=== PATIENT | female | born 1950 | race Caucasian/White ===

== ENCOUNTER 2023-12-13 11:34 | Emergency (ER) | payer OTHER, SELFPAY ==
[2023-12-13 11:58] VITALS: BP 130/82
--- NOTE | 2023-12-13 14:39 | ED.GENMED ---
History of Present Illness
<Chente Telles Jr., PA-C - Last Filed: 12/14/23 23:24>
General
Chief Complaint: Skin Surface Trauma
Source: patient and spouse
Exam Limitations: none
Time Seen by Provider: 12/13/23 13:56
Nursing documentation reviewed up to this point in time: agreed with
Travel History
Have you had any contact with someone who has COVID-19?: No
Do you have any symptoms of coronavirus? Fever > 100 degrees, chills, cough, shortness of breath, sore throat, loss of taste or smell, muscle aches, or headache?: No
History of Present Illness
History of Present Illness:
73-year-old female with past medical history of hypertension hyperlipidemia, anxiety depression currently on Plavix presenting to the emergency department today after a trip and fall in her home hitting her chin did not lose consciousness no nausea
vomiting has some mild pain to her chin also discomfort to her right shoulder and right posterior lower back. Also has a laceration to her left lower extremity. Has been able to ambulate since. Denies any numbness or weakness.
Past History
<Chente Telles Jr., PA-C - Last Filed: 12/14/23 23:24>
Past History
ED Past Medical History: CVA, GERD, HTN, Hypercholesterolemia, NIDDM and Other (Peripheral vascular disease, peptic ulcer disease, Renal CA with right nephrectomy 2006)
ED Past Surgical History: Gynecological and Other
Social History
Tobacco: Non-smoker
Alcohol: None
Drug: None
Personal:
Living: with family
Review of Systems
<YASH Tapia Jr. Last Filed: 12/14/23 23:24>
Review of Systems
Allergies reviewed?: Yes
All Other Systems: ROS reviewed and negative except as documented in HPI and ROS
Phy Exam
<Chente Telles Jr., PA-C - Last Filed: 12/14/23 23:24>
Physical Exam
Physical Exam:
GENERAL: Alert , in no apparent distress
EYE: pupils equal and reactive
NECK: Supple, no significant adenopathy.
ENT: Laceration just below the chin on the right side 3 cm in length subcutaneous in depth. o/p clr, mmm.
CARDIAC: Regular rate and rhythm .
LUNGS: Clear breath sounds bilaterally, no acute respiratory distress, no wheezes/rales/rhonchi
ABDOMEN: Soft, without focal tenderness, no r/g, no cvat
NEUROLOGICAL: Alert and oriented, no focal neuro deficits
SKIN: Laceration deep to the subcutaneous tissue on the left anterior lower early. Roughly 5 cm in total length subcutaneous in depth no foreign body seen clean and General appearance. Warm and dry, skin intact.
MUSCULOSKELETAL: Discomfort to the right shoulder. Also discomfort of the right low back. No edema, well perfused.
PSYCH: Normal and appropriate interaction.
Course
<Chente Telles Jr., PA-C - Last Filed: 12/14/23 23:24>
Orders/Labs/Results
Orders:
Orders
12/13/23 14:08
CT Cervical Spine W/o Iv Contr Urgent
Comment:
Reason For Exam: fall neck pain
CT Head W/o Iv Contrast Urgent
Comment:
Reason For Exam: fall hit head
CT Lumbar Spine W/o Iv Contras Urgent
Comment:
Reason For Exam: fall lbp
Cephalexin Monohydrate [Keflex] 500 mg PO NOW STA
Tetanus/Diphth/Acelpertussis [Adacel] 0.5 ml IM .ONCE ONE
CR Leg Tibia/fibula Left 2 Vw Urgent
Comment:
Reason For Exam: fallleg pain
CR Shoulder, Trauma - Right Urgent
Comment:
Reason For Exam: fall right shoulder pain
12/13/23 15:57
CT Angio Lower Ext W/Wo Iv Contrast [CT Lower Ext Angio W/wo Iv Con] Urgent
Comment:
Reason For Exam: left leg at the ankle. mid early and distal
12/13/23 16:03
HYDROmorphone [Dilaudid] 0.5 mg IV NOW STA
12/13/23 16:11
BMP [Basic Metabolic Panel] Urgent
Complete Blood Count/With Diff Urgent
12/13/23 17:13
Cephalexin Monohydrate [Keflex] 500 mg .ROUTE .STK-MED ONE
Tetanus/Diphth/Acelpertussis [Adacel] 0.5 ml .ROUTE .STK-MED ONE
Abnormal Lab Results
12/13/23
16:11
RBC 3.93 L 10^6/uL
(4.20-5.40)
Hgb 11.2 L g/dL
(12.0-16.0)
Hct 33.6 L %
(37.0-47.0)
Absolute Neuts (auto) 6.9 H 10^3/uL
(1.4-6.5)
Glucose 143 H mg/dl
(70-99)
12/13/23 16:11
12/13/23 16:11
Vital Signs
Initial and Last Documented VS:
Initial Vital Signs
Temp Pulse Resp BP Pulse Ox
98 F 66 16 130/82 98
12/13/23 11:58 12/13/23 11:58 12/13/23 11:58 12/13/23 11:58 12/13/23 11:58
Last Documented Vital Signs
Temp Pulse Resp BP Pulse Ox
98 F 66 16 130/82 98
12/13/23 11:58 12/13/23 11:58 12/13/23 11:58 12/13/23 11:58 12/13/23 11:58
<Ben Kendall DO - Last Filed: 12/13/23 16:04>
Orders/Labs/Results
Orders:
Orders
12/13/23 14:08
CT Cervical Spine W/o Iv Contr Urgent
Comment:
Reason For Exam: fall neck pain
CT Head W/o Iv Contrast Urgent
Comment:
Reason For Exam: fall hit head
CT Lumbar Spine W/o Iv Contras Urgent
Comment:
Reason For Exam: fall lbp
Cephalexin Monohydrate [Keflex] 500 mg PO NOW STA
Tetanus/Diphth/Acelpertussis [Adacel] 0.5 ml IM .ONCE ONE
CR Leg Tibia/fibula Left 2 Vw Urgent
Comment:
Reason For Exam: fallleg pain
CR Shoulder, Trauma - Right Urgent
Comment:
Reason For Exam: fall right shoulder pain
12/13/23 15:57
CT Angio Lower Ext W/Wo Iv Contrast [CT Lower Ext Angio W/wo Iv Con] Urgent
Comment:
Reason For Exam: left leg at the ankle. mid early and distal
12/13/23 16:03
HYDROmorphone [Dilaudid] 0.5 mg IV NOW STA
12/13/23 16:11
BMP [Basic Metabolic Panel] Urgent
Complete Blood Count/With Diff Urgent
12/13/23 17:13
Cephalexin Monohydrate [Keflex] 500 mg .ROUTE .STK-MED ONE
Tetanus/Diphth/Acelpertussis [Adacel] 0.5 ml .ROUTE .STK-MED ONE
Abnormal Lab Results
12/13/23
16:11
RBC 3.93 L 10^6/uL
(4.20-5.40)
Hgb 11.2 L g/dL
(12.0-16.0)
Hct 33.6 L %
(37.0-47.0)
Absolute Neuts (auto) 6.9 H 10^3/uL
(1.4-6.5)
Glucose 143 H mg/dl
(70-99)
12/13/23 16:11
12/13/23 16:11
Vital Signs
Initial and Last Documented VS:
Initial Vital Signs
Temp Pulse Resp BP Pulse Ox
98 F 66 16 130/82 98
12/13/23 11:58 12/13/23 11:58 12/13/23 11:58 12/13/23 11:58 12/13/23 11:58
Last Documented Vital Signs
Temp Pulse Resp BP Pulse Ox
98 F 66 16 130/82 98
12/13/23 11:58 12/13/23 11:58 12/13/23 11:58 12/13/23 11:58 12/13/23 11:58
<Jared Rodrigues PA-C - Last Filed: 12/13/23 19:05>
Orders/Labs/Results
Orders:
Orders
12/13/23 14:08
CT Cervical Spine W/o Iv Contr Urgent
Comment:
Reason For Exam: fall neck pain
CT Head W/o Iv Contrast Urgent
Comment:
Reason For Exam: fall hit head
CT Lumbar Spine W/o Iv Contras Urgent
Comment:
Reason For Exam: fall lbp
Cephalexin Monohydrate [Keflex] 500 mg PO NOW STA
Tetanus/Diphth/Acelpertussis [Adacel] 0.5 ml IM .ONCE ONE
CR Leg Tibia/fibula Left 2 Vw Urgent
Comment:
Reason For Exam: fallleg pain
CR Shoulder, Trauma - Right Urgent
Comment:
Reason For Exam: fall right shoulder pain
12/13/23 15:57
CT Angio Lower Ext W/Wo Iv Contrast [CT Lower Ext Angio W/wo Iv Con] Urgent
Comment:
Reason For Exam: left leg at the ankle. mid early and distal
12/13/23 16:03
HYDROmorphone [Dilaudid] 0.5 mg IV NOW STA
12/13/23 16:11
BMP [Basic Metabolic Panel] Urgent
Complete Blood Count/With Diff Urgent
12/13/23 17:13
Cephalexin Monohydrate [Keflex] 500 mg .ROUTE .STK-MED ONE
Tetanus/Diphth/Acelpertussis [Adacel] 0.5 ml .ROUTE .STK-MED ONE
Abnormal Lab Results
12/13/23
16:11
RBC 3.93 L 10^6/uL
(4.20-5.40)
Hgb 11.2 L g/dL
(12.0-16.0)
Hct 33.6 L %
(37.0-47.0)
Absolute Neuts (auto) 6.9 H 10^3/uL
(1.4-6.5)
Glucose 143 H mg/dl
(70-99)
12/13/23 16:11
12/13/23 16:11
Vital Signs
Initial and Last Documented VS:
Initial Vital Signs
Temp Pulse Resp BP Pulse Ox
98 F 66 16 130/82 98
12/13/23 11:58 12/13/23 11:58 12/13/23 11:58 12/13/23 11:58 12/13/23 11:58
Last Documented Vital Signs
Temp Pulse Resp BP Pulse Ox
98 F 66 16 130/82 98
12/13/23 11:58 12/13/23 11:58 12/13/23 11:58 12/13/23 11:58 12/13/23 11:58
Procedures
<Chente Telles Jr., PA-C - Last Filed: 12/14/23 23:24>
Laceration Closure
Chin:
Status of Wound: clean
Size of Wound in cm: 4
Description of Wound Edges: sharp
Preparation: cleaned with saline
Anesthesia: 1% Lidocaine with epi
Revision/Debridement: routine- no revision and irrigate-direct pressure
Wound exploration: explored to base- no FB and no tendon involvement
Type of Closure: interrupted sutures
Skin Closure Material: 5-0 nylon
Number of sutures: 6
Left Anterior Ankle:
Status of Wound: clean
Size of Wound in cm: 7
Description of Wound Edges: sharp
Preparation: cleaned with saline
Anesthesia: 1% Lidocaine with epi
Revision/Debridement: minor revision and irrigate-direct pressure
Wound exploration: explored to base- no FB and no tendon involvement
Type of Closure: single layer closure and other (Significant bleeding from the laceration site requiring 3 [id number] stitches to control bleeding through the center of the wound then closed with additional simple interrupted sutures as
well with 4-0 nylon)
Skin Closure Material: 4-0 nylon
Number of sutures: 11
<Chente Telles Jr., PETROS-Kasey - Last Filed: 12/14/23 23:24>
MDM/Problems Addressed
MDM/Problems Addressed:
73-year-old female presenting to the emergency department today with concerns of multiple injuries after ground-level trip and fall in her closet. Hit her chin hit her left early also has some right shoulder pain and right low back pain. On arrival
here vital signs are normal. Patient no obvious distress. Does have a laceration to the left anterior early that required repair as well as laceration below the chin that required repair. She did get a CT scan of the head and neck as well as of
the low back additionally an x-ray of the right shoulder.
No emergent findings on imaging. Patient laceration to the chin closed with 6 nonabsorbable sutures and will follow-up for removal in the future. Tolerated well no foreign body seen clean in appearance was started on Keflex due to multiple wounds
and also given updated tetanus shot. Patient had the left ankle cleaned and repaired initial significant bleeding from the wound requiring multiple [id number] sutures to control the bleeding. There was concern of potential arterial bleed Case
was discussed with vascular surgery and CT angiogram obtained without emergent findings otherwise stable for outpatient manage.
<Jared Rodrigues PA-C - Last Filed: 12/13/23 19:05>
*Critical Care Note
Total Time (30-74mins, 75-104mins- exclusive of procedures): Not Applicable
<Jared Rodrigues PA-C - Last Filed: 12/13/23 19:05>
Update Note
Update Note:
Assumed care of patient pending CT angiogram of the lower extremity secondary to potential arterial bleed for the laceration. Patient was seen and examined by vascular surgery. CT angiogram was negative for acute arterial bleed. The wound was
reinspected we irrigated and reanesthetized with 1% lidocaine with epinephrine. Wound closure was completed with 4-0 Prolene sutures in a simple erupted fashion. Including the sutures from prior provider there was a total of 11 sutures in the leg.
Dressing was applied she was sent home with antibiotics and something for pain. Wound care instructions and return precautions.
ED Attending Note
<Chente Telles Jr., PA-C - Last Filed: 12/14/23 23:24>
-
Portions of this chart may have been created with voice recognition software.� Occasional wrong word or��sound alike� substitutions may have occurred due to the inherent limitations of voice recognition software.
<Ben Kendall DO - Last Filed: 12/13/23 16:04>
ED Attending Note
Patient seen and examined by attending physician: Yes
I performed the substantive portion of visit, reviewed & personally made and approve the management plan that is documented in note by myself or JULIEN.: Yes
ED Attending Note:
Seen with PETROS examined and apparently fall Chin lac deep lack to the left lower extremity apparently having some pain after being sutured sounds like it was some arterial bleeding, will check labs and CT angiogram
Discharge Plan
Departure
Patient Disposition: Home (Routine Discharge)
Date of Disposition: 12/13/23
Time of Disposition: 19:01
Patient with high blood pressure during this ER visit?: No
Discharge Problem:
Laceration
Instructions: Laceration Repair With Stitches (DC)
Prescriptions:
New
hydrocodone-acetaminophen 5-325 mg tablet
1 tab PO Q8H PRN (Reason: Pain) Qty: 10 0RF
cephalexin 500 mg capsule
500 mg PO Q8H 7 Days Qty: 21 0RF
No Action
lisinopril [Zestril] 40 MG tablet
40 mg PO QPM
metoprolol tartrate 25 MG tablet
25 mg PO DAILY
citalopram 40 mg Tablet
40 mg PO DAILY
bupropion HCl 100 mg Tablet
100 mg PO DAILY
repaglinide 2 mg tablet
2 mg PO MEALS
metoprolol tartrate 25 mg Tablet
50 mg PO QPM
Trulicity 1.5 mg/0.5 mL pen injector
1.5 mg SC MO
acetaminophen 325 MG tablet
650 mg PO Q6H PRN (Reason: mild pain)
pantoprazole [Protonix] 40 mg tablet,delayed release (DR/EC)
40 mg PO DAILY Qty: 30 0RF
atorvastatin 80 MG tablet
80 mg PO QPM Qty: 30 0RF
cetirizine 10 MG tablet
10 mg PO DAILY Qty: 30 0RF
clopidogrel 75 MG tablet
75 mg PO DAILY Qty: 30 0RF
Hold Instructions: Resume on 06/06/23.
trazodone 100 MG tablet
100 mg PO HS Qty: 30 0RF
fluticasone propionate 1 SPRAY spray,suspension
2 spray intranasal DAILY Qty: 1 0RF
Referrals:
Deborah Boucher PA-C [Family Provider] -
Activity Restrictions/Additional Instructions:
Have sutures removed from your chin in 5 days. Have sutures removed from your leg in 12 to 14 days. Watch for signs of infection. You have been prescribed antibiotics and pain medicine. Take them as directed. Return if needed otherwise
Interventions
Interventions:
*General Assessment Last Done: 12/13/23 19:46
*Nursing Disposition Last Done: 12/13/23 19:46
ED-Skin Assessment Last Done: 12/13/23 12:40
Discharge Date and Time
Discharge Date/Time: 12/13/23 19:47
[2023-12-13] MEDS: DILAUDID 0.5 MG IV (16:05)
--- NOTE | 2023-12-13 16:19 | CON.VAS ---
Consultation
Consultation Request
Requesting Provider: Chente Telles PA-C
Performing Provider: Leslye Ledesma NP- C for John Montes De Oca III, MD
Reason for Consultation: Left early laceration
Medical History
-
Chief Complaint: Left early laceration
History of Present Illness:
This is an 73-year-old female with past medical history of hypertension hyperlipidemia, anxiety, and CVA presenting to the emergency department today after a mechanical fall in her closet lacerating her chin and left early. Vascular surgery was
consulted by ED PA following suture to left leg laceration, regarding possible injury to blood vessels. ED PA notes following 3 sutures laceration patient started reporting increased pain. Currently the patient reports pain to left lower
extremity, chin, and lower back following her fall. She denies numbness and tingling to left lower extremity. Denies decreased sensation or motor function to left extremity.
Past Medical History
Past Medical History: CVA, GERD, HTN, Hypercholesterolemia, NIDDM and Other (Peripheral vascular disease, peptic ulcer disease, Renal CA with right nephrectomy 2006)
Social History
Tobacco: Non-Smoker
Personal:
Living: With Family
Allergies / Home Medications
Allergy/AdvReac Type Severity Reaction Status Date / Time
adhesive tape [Adhesive Tape] Allergy blisters,re Verified 12/13/23 11:58
dness
aspirin [Aspirin] Allergy stomach Verified 12/13/23 11:58
ulcer
history
house dust Allergy Post-nasal Verified 12/13/23 11:58
drip, cough
levofloxacin [From Levaquin] Allergy Nausea / Verified 12/13/23 11:58
Vomiting/diarrhea
mold Allergy Post-nasal Verified 12/13/23 11:58
drip, cough
morphine [Morphine] Allergy severe Verified 12/13/23 11:58
constipation
NSAIDS (Non-Steroidal Allergy 'ANTIINFLAMATORIES Verified 12/13/23 11:58
Anti-Inflamma = ULCERS'
prednisone Allergy 'ANTIINFLAM Verified 12/13/23 11:58
ATORIES=ULC
ERS'
tree and shrub pollen Allergy Post-nasal Verified 12/13/23 11:58
drip, cough
Medication Instructions Recorded Confirmed Type
atorvastatin 80 mg tablet 80 mg PO QPM #30 tabs 01/19/20 06/01/23 Rx
cetirizine 10 mg tablet 10 mg PO DAILY #30 tabs 01/19/20 06/01/23 Rx
clopidogrel 75 mg tablet 75 mg PO DAILY #30 tabs 01/19/20 06/01/23 Rx
fluticasone propionate 50 2 spray intranasal DAILY ##1 01/19/20 06/01/23 Rx
mcg/actuation nasal
spray,suspension
trazodone 100 mg tablet 100 mg PO HS #30 tabs 01/19/20 06/01/23 Rx
lisinopril 40 mg tablet (Zestril) 40 mg PO QPM Blood pressure 09/19/20 06/01/23 History
metoprolol tartrate 25 mg tablet 25 mg PO DAILY Blood Pressure 10/30/20 06/01/23 History
acetaminophen 325 mg tablet 650 mg PO Q6H PRN mild pain 06/01/23 06/01/23 History
bupropion HCl 100 mg tablet 100 mg PO DAILY Mental 06/01/23 06/01/23 History
Health/Anxiety
citalopram 40 mg tablet 40 mg PO DAILY Mental 06/01/23 06/01/23 History
Health/Anxiety
dulaglutide 1.5 mg/0.5 mL 1.5 mg SC MO Diabetes 06/01/23 06/01/23 History
subcutaneous pen injector
(Trulicity)
metoprolol tartrate 25 mg tablet 50 mg PO QPM 06/01/23 06/01/23 History
repaglinide 2 mg tablet 2 mg PO MEALS Diabetes 06/01/23 06/01/23 History
pantoprazole 40 mg tablet,delayed 40 mg PO DAILY #30 tabs 06/05/23 Rx
release (Protonix)
Review of Systems
-
History Source: Patient
Constitutional: Denies Fever
EENT: Reports Mouth Pain (To chin following mechanical fall)
Respiratory: Denies No Symptoms
Cardiac: Denies No Symptoms
Vascular: Denies Numbness
Abdomen/GI: Reports No Symptoms
Musculoskeletal: Reports Other (Does endorse pain to the left lower extremity)
Skin: Reports Other (Laceration to chin and lower extremity)
Physical Exam
Vital Signs
Temp Pulse Resp BP Pulse Ox
98 F 66 16 130/82 98
12/13/23 11:58 12/13/23 11:58 12/13/23 11:58 12/13/23 11:58 12/13/23 11:58
Physical Exam
General: No Apparent Distress
HEENT: Normocephalic and Other (Laceration to chin)
Respiratory: Non Labored Respirations
GI: Soft, Non Tender and Non Distended
Musculoskeletal: No Edema and Other (Left lower extremity sensation intact, motor intact)
Skin: Other (Left lower extremity with laceration, ecchymosis, and a small hematoma around recently placed sutures)
Neuro: AO x 3
Pulses: Bilateral Dorsalis Pedis: +1
Assessment / Plan
-
Assessment: 73-year-old female presents to ED after mechanical fall with laceration to chin and left lower extremity.
Plan:
Given palpable pulses and intact motor/sensation unlikely patient has established vascular compromise following trauma. However, to be cautious agree with ED PA obtaining left lower extremity CTA to ensure vascular patency. If there is no
evidence of vascular compromise, no surgical intervention will be required.
Patient seen and examined at bedside with Dr. John Montes De Oca who agrees with plan.
[2023-12-13 16:24] LABS: % Basophils 0.3 % (0-2); % Eosinophils 1.8 % (0-6); % Immature Granulocytes 0.2 % (0-0.5); % Lymphocytes 25.2 % (20.5-51.1); % Monocytes 5.6 % (1.7-9.3); % Neutrophils 66.9 % (42.2-75.2); Absolute Eosinophils 0.2 10^3/uL (0-0.7); Absolute Lymphocytes 2.6 10^3/uL (1.2-3.4); Absolute Monocytes 0.6 10^3/uL (0.1-0.6); Absolute Neutrophils 6.9 10^3/uL (1.4-6.5); Hematocrit 33.6 % (37.0-47.0); Hemoglobin 11.2 g/dL (12.0-16.0); Mean Corp Hgb Conc. 33.3 g/dL (33.0-37.0); Mean Corpuscular Hgb 28.5 pg (27.0-31.0); Mean Corpuscular Volume 85.5 fL (81.0-99.0); Mean Platelet Volume 10.3 fL (7.4-10.4); Nucleated Red Blood Cells % 0 %; Platelet Count 370 10^3/uL (130-400); Red Blood Cell Count 3.93 10^6/uL (4.20-5.40); Red Cell Dist. Width 13.5 % (11.5-14.5); White Blood Cell Count 10.2 10^3/uL (4.8-10.8)
[2023-12-13 16:43] LABS: Blood Urea Nitrogen 14 mg/dl (7-17); Carbon Dioxide 23 mmol/L (22-30); Chloride 106 mmol/L (98-107); Glucose 143 mg/dl (70-99); Potassium 4.8 mmol/L (3.5-5.1); Sodium 136 mmol/L (135-145); eGFR > 60.00
[2023-12-13] MEDS: ADACEL 0.5 ML IM (17:16)
[2023-12-13] MEDS: KEFLEX 500 MG PO (17:16)
== END 2023-12-13 19:47 | disposition home or self-care (01) ==
LOC: EMR 11:34
PROVIDERS: Physician Assistant; EMERGENCY PHYSICIAN Emergency Medicine; FAMILY PHYSICIAN Physician Assistant Medical; OTHER PHYSICIAN Surgery Vascular Surgery
DX: S01.81XA Laceration without foreign body of other part of head, initial encounter (principal); S81.812A Laceration without foreign body, left lower leg, initial encounter; W01.0XXA Fall on same level from slipping, tripping and stumbling without subsequent striking against object, initial encounter; Y92.008 Other place in unspecified non-institutional (private) residence as the place of occurrence of the external cause; M25.511 Pain in right shoulder; M54.2 Cervicalgia; M79.605 Pain in left leg; M54.50 Low back pain, unspecified
CPT/HCPCS: 99285; 12032; 96374; 12002; 90471; 70450; 72125; 72131; 73030; 73590; 73706; 80048; 85025; 90715; Q9967

== ENCOUNTER → 2023-12-27 16:02 | Outpatient (REF) | payer OTHER, SELFPAY | LOC: HWRAD 16:02 | PROVIDERS: ATTENDING PHYSICIAN Physician Assistant Medical | DX: Z48.02 Encounter for removal of sutures (principal) | CPT/HCPCS: 73502 ==

== ENCOUNTER → 2024-01-02 15:10 | Outpatient (REF) | payer OTHER, SELFPAY | LOC: HWRAD 15:10 | PROVIDERS: ATTENDING PHYSICIAN Physician Assistant; FAMILY PHYSICIAN Physician Assistant Medical | DX: M54.50 Low back pain, unspecified (principal); M25.551 Pain in right hip; M79.18 Myalgia, other site; W19.XXXA Unspecified fall, initial encounter | CPT/HCPCS: 72131; 72192 ==

== ENCOUNTER → 2024-01-17 12:19 | Outpatient (REF) | payer OTHER, SELFPAY | LOC: WOUND 12:19 | PROVIDERS: ATTENDING PHYSICIAN Surgery; FAMILY PHYSICIAN Physician Assistant Medical | DX: I87.313 Chronic venous hypertension (idiopathic) with ulcer of bilateral lower extremity (principal); L97.812 Non-pressure chronic ulcer of other part of right lower leg with fat layer exposed; L97.312 Non-pressure chronic ulcer of right ankle with fat layer exposed; L97.822 Non-pressure chronic ulcer of other part of left lower leg with fat layer exposed; I73.9 Peripheral vascular disease, unspecified; I87.2 Venous insufficiency (chronic) (peripheral); Z86.73 Personal history of transient ischemic attack (TIA), and cerebral infarction without residual deficits; E11.21 Type 2 diabetes mellitus with diabetic nephropathy; R60.9 Edema, unspecified; R29.898 Other symptoms and signs involving the musculoskeletal system | CPT/HCPCS: 11042; 97597; 99214 ==

== ENCOUNTER → 2024-01-23 16:09 | Outpatient (REF) | payer OTHER, SELFPAY | LOC: HWRAD 16:09 | PROVIDERS: ATTENDING PHYSICIAN Family Medicine | DX: R68.84 Jaw pain (principal); K11.20 Sialoadenitis, unspecified | CPT/HCPCS: 70110 ==

== ENCOUNTER → 2024-01-28 14:30 | Outpatient (REF) | payer OTHER, SELFPAY | LOC: WOUND 14:30 | PROVIDERS: ATTENDING PHYSICIAN Surgery; FAMILY PHYSICIAN Physician Assistant Medical | DX: I87.313 Chronic venous hypertension (idiopathic) with ulcer of bilateral lower extremity (principal); L97.812 Non-pressure chronic ulcer of other part of right lower leg with fat layer exposed; L97.312 Non-pressure chronic ulcer of right ankle with fat layer exposed; L97.822 Non-pressure chronic ulcer of other part of left lower leg with fat layer exposed; I73.9 Peripheral vascular disease, unspecified; I87.2 Venous insufficiency (chronic) (peripheral); Z86.73 Personal history of transient ischemic attack (TIA), and cerebral infarction without residual deficits; E11.21 Type 2 diabetes mellitus with diabetic nephropathy; R60.9 Edema, unspecified; E11.9 Type 2 diabetes mellitus without complications; R29.898 Other symptoms and signs involving the musculoskeletal system | CPT/HCPCS: 11042 ==

== ENCOUNTER → 2024-02-04 13:38 | Outpatient (REF) | payer OTHER, SELFPAY | LOC: WOUND 13:38 | PROVIDERS: ATTENDING PHYSICIAN Surgery; FAMILY PHYSICIAN Physician Assistant Medical | DX: I87.313 Chronic venous hypertension (idiopathic) with ulcer of bilateral lower extremity (principal); L97.812 Non-pressure chronic ulcer of other part of right lower leg with fat layer exposed; L97.312 Non-pressure chronic ulcer of right ankle with fat layer exposed; L97.822 Non-pressure chronic ulcer of other part of left lower leg with fat layer exposed; I73.9 Peripheral vascular disease, unspecified; I87.2 Venous insufficiency (chronic) (peripheral); E11.21 Type 2 diabetes mellitus with diabetic nephropathy; R60.9 Edema, unspecified; R29.898 Other symptoms and signs involving the musculoskeletal system; Z86.73 Personal history of transient ischemic attack (TIA), and cerebral infarction without residual deficits | CPT/HCPCS: 11042 ==

== ENCOUNTER → 2024-02-11 13:43 | Outpatient (REF) | payer OTHER, SELFPAY | LOC: WOUND 13:43 | PROVIDERS: ATTENDING PHYSICIAN Surgery; FAMILY PHYSICIAN Physician Assistant Medical | DX: I87.313 Chronic venous hypertension (idiopathic) with ulcer of bilateral lower extremity (principal); L97.812 Non-pressure chronic ulcer of other part of right lower leg with fat layer exposed; L97.312 Non-pressure chronic ulcer of right ankle with fat layer exposed; L97.822 Non-pressure chronic ulcer of other part of left lower leg with fat layer exposed; I73.9 Peripheral vascular disease, unspecified; I87.2 Venous insufficiency (chronic) (peripheral); E11.21 Type 2 diabetes mellitus with diabetic nephropathy; R60.9 Edema, unspecified; E11.9 Type 2 diabetes mellitus without complications; R29.898 Other symptoms and signs involving the musculoskeletal system; Z86.73 Personal history of transient ischemic attack (TIA), and cerebral infarction without residual deficits | CPT/HCPCS: 11042; 97597 ==

== ENCOUNTER → 2024-02-24 13:41 | Outpatient (REF) | payer OTHER, SELFPAY | LOC: WOUND 13:41 | PROVIDERS: ATTENDING PHYSICIAN Surgery; FAMILY PHYSICIAN Physician Assistant Medical | DX: I87.313 Chronic venous hypertension (idiopathic) with ulcer of bilateral lower extremity (principal); L97.312 Non-pressure chronic ulcer of right ankle with fat layer exposed; L97.412 Non-pressure chronic ulcer of right heel and midfoot with fat layer exposed; I73.9 Peripheral vascular disease, unspecified; I87.2 Venous insufficiency (chronic) (peripheral); Z86.73 Personal history of transient ischemic attack (TIA), and cerebral infarction without residual deficits; E11.21 Type 2 diabetes mellitus with diabetic nephropathy; R60.9 Edema, unspecified; R29.898 Other symptoms and signs involving the musculoskeletal system | CPT/HCPCS: 11042 ==

== ENCOUNTER 2024-02-26 18:58 | Inpatient (IN) | payer OTHER, SELFPAY ==
[2024-02-26 12:27] VITALS: BP 146/98
[2024-02-26 12:48] LABS: % Basophils 0.4 % (0-2); % Eosinophils 4.7 % (0-6); % Immature Granulocytes 0.3 % (0-0.5); % Lymphocytes 18.2 % (20.5-51.1); % Monocytes 6.1 % (1.7-9.3); % Neutrophils 70.3 % (42.2-75.2); Absolute Eosinophils 0.4 10^3/uL (0-0.7); Absolute Lymphocytes 1.4 10^3/uL (1.2-3.4); Absolute Monocytes 0.5 10^3/uL (0.1-0.6); Absolute Neutrophils 5.5 10^3/uL (1.4-6.5); Hematocrit 35.6 % (37.0-47.0); Hemoglobin 11.9 g/dL (12.0-16.0); Mean Corp Hgb Conc. 33.4 g/dL (33.0-37.0); Mean Corpuscular Hgb 27.7 pg (27.0-31.0); Mean Corpuscular Volume 82.8 fL (81.0-99.0); Mean Platelet Volume 10.9 fL (7.4-10.4); Nucleated Red Blood Cells % 0 %; Platelet Count 278 10^3/uL (130-400); Red Cell Dist. Width 14.4 % (11.5-14.5); White Blood Cell Count 7.8 10^3/uL (4.8-10.8)
[2024-02-26 13:05] LABS: ALT (SGPT) 22 U/L (0-35); AST (SGOT) 21 U/L (14-36); Albumin 3.8 g/dl (3.5-5.0); Alkaline Phosphatase 139 U/L (38-126); Blood Urea Nitrogen 15 mg/dl (7-17); Calcium 9.5 mg/dl (8.4-10.2); Carbon Dioxide 29 mmol/L (22-30); Chloride 102 mmol/L (98-107); Glucose 157 mg/dl (70-99); Sodium 137 mmol/L (135-145); Total Bilirubin 0.6 mg/dl (0.2-1.3); Total Protein 6.6 g/dl (6.3-8.2); eGFR > 60.00
[2024-02-26 13:39] LABS: Potassium 4.2 mmol/L (3.5-5.1)
--- NOTE | 2024-02-26 16:14 | ED.GENMED ---
History of Present Illness
<Radha Arriola PA-C - Last Filed: 02/26/24 18:41>
General
Chief Complaint: Skin Problem
Source: patient
Exam Limitations: none
Time Seen by Provider: 02/26/24 15:56
Nursing documentation reviewed up to this point in time: agreed with
Travel History
Have you had any contact with someone who has COVID-19?: No
Do you have any symptoms of coronavirus? Fever > 100 degrees, chills, cough, shortness of breath, sore throat, loss of taste or smell, muscle aches, or headache?: No
History of Present Illness
History of Present Illness:
Patient is a 73-year-old female with history of diabetes, prior CVA on Plavix presenting for evaluation of right foot wound. Patient states that a week and half ago she dropped something on her foot resulting in a blood blister. She was seen by
the wound care center on Saturday where they removed blood blister and clot beneath. They packed the wound and instructed her to change the packing daily. When her changed packing this morning he reports the 'pus-like' drainage and
significant worsening and surrounding redness and warmth. Patient reports significant pain in the right foot throughout the day. He is able to bear very minimal weight with significant pain. She denies any fever, chills, chest pain, shortness of
breath, abdominal pain, nausea/vomiting.
Patient was seen by her primary care doctor today for evaluation of foot wound and they referred her to the emergency department for potential IV antibiotics.
Past History
<Radha Arriola PA-C - Last Filed: 02/26/24 18:41>
Past History
ED Past Medical History: CVA, GERD, HTN, Hypercholesterolemia, NIDDM and Other (Peripheral vascular disease, peptic ulcer disease, Renal CA with right nephrectomy 2006)
ED Past Surgical History: Gynecological and Other
Social History
Tobacco: Non-smoker
Alcohol: None
Drug: None
Personal:
Living: with family
Phy Exam
<Radha Arriola PA-C - Last Filed: 02/26/24 18:41>
Physical Exam
Physical Exam:
General: In no apparent distress, nontoxic appearing
Vitals: Mildly hypertensive, otherwise vital signs stable; afebrile
HEENT: Atraumatic, normocephalic; pupils equal round and reactive to light bilaterally, extraocular muscle intact, protecting airway
Neck: appears supple, trachea midline
CV: Regular rate and rhythm, heart sounds normal, no evidence of cyanosis
Resp: No evidence of respiratory distress, lungs clear bilaterally
Abd: Soft, nontender, non-distended
Extremities: Wound on the right dorsal left with surrounding erythema and significant edema; significant tenderness to palpation of right dorsal foot, no bony tenderness, sensation fully intact, right lower extremity neurovascular intact, DP pulses
palpable and equal bilaterally
Neuro: alert and oriented; grossly
Psych: Normal affect
Skin: Wound as described above, venous stasis changes bilaterally
Course
<Radha Arriola PA-C - Last Filed: 02/26/24 18:41>
Orders/Labs/Results
Orders:
Orders
02/26/24 12:29
CR Foot - Right Min 3 Views Urgent
Comment:
Reason For Exam: pain
02/26/24 12:35
CMP [Comprehensive Metabolic Panel] Urgent
Complete Blood Count/With Diff Urgent
02/26/24 16:41
Acetaminophen [Tylenol] 650 mg PO NOW STA
Piperacillin/Tazo 3.375 Gram [Zosyn] 3.375 gram in 50 ml IV NOW
Vancomycin 1 Gram/200 ml [Vancocin] 1 gram in 200 ml IV NOW
02/26/24 16:43
Blood Culture Urgent
BRY Source: Blood/Venous
Specimen Description:
02/26/24 16:58
Wound Culture [Wound/Abscess/Other Culture] Urgent
BRY Source: Foot
Specimen Description: Right
Date Specimen was Collected: 02/26/24
Time Specimen was Collected: 16:57
02/26/24 17:48
MRSA Screen Routine
BRY Source: Nose
Specimen Description:
02/26/24 17:53
Admit/Transfer Patient As Directed
Co-Sign Provider:
Level of Care: Inpatient admission
Assign to:: Medical/Surgical
Physician / Group: kristie white
Diagnosis: diabetic foot wound
Reason for Hospitalization: diabetic foot wound
Expected length of stay greater than two midnights?: Yes
ELOS- Estimated Length of Stay in days: 3
I certify the patient meets the requirements for IP care: Yes
Code Status As Directed
Resuscitation Status: Full Code
02/26/24 17:59
PODIATRY CONSULT Routine
Consulting Provider: Pema Topete
Was physician already notified: Yes
Reason for consult: open foot wound diabetic female
02/26/24 18:00
Cefepime HCl [Maxipime] 1,000 mg IV Q8H
VANCOMYCIN Pharmacy to Dose [VANCOCIN Pharmacy to Dose] 1 each Pharmacy To Prepare [Call Pharmacy To Prepare] 0 ml IV PER PROTOCOL
02/26/24 18:01
Vancomycin 1 Gram/200 ml [Vancocin] 1 gram in 200 ml IV NOW
02/26/24 18:02
Blood Culture Urgent
BRY Source: Blood/Venous
Specimen Description:
02/26/24 18:04
HydrALAZINE [Apresoline] 5 mg IV NOW STA
Abnormal Lab Results
02/26/24
12:35
Hgb 11.9 L g/dL
(12.0-16.0)
Hct 35.6 L %
(37.0-47.0)
MPV 10.9 H fL
(7.4-10.4)
Lymphocytes % 18.2 L %
(20.5-51.1)
Glucose 157 H mg/dl
(70-99)
Alkaline Phosphatase 139 H U/L
(38-126)
02/26/24 12:35
02/26/24 12:35
Vital Signs
Initial and Last Documented VS:
Initial Vital Signs
Temp Pulse Resp BP Pulse Ox
98.6 F 71 16 146/98 98
02/26/24 12:27 02/26/24 12:27 02/26/24 12:27 02/26/24 12:27 02/26/24 12:27
Last Documented Vital Signs
Temp Pulse Resp BP Pulse Ox
98.6 F 70 17 170/79 97
02/26/24 12:27 02/26/24 17:45 02/26/24 17:45 02/26/24 17:00 02/26/24 17:45
<Ej Martin, DO - Last Filed: 02/26/24 16:32>
Orders/Labs/Results
Orders:
Orders
02/26/24 12:29
CR Foot - Right Min 3 Views Urgent
Comment:
Reason For Exam: pain
02/26/24 12:35
CMP [Comprehensive Metabolic Panel] Urgent
Complete Blood Count/With Diff Urgent
02/26/24 16:41
Acetaminophen [Tylenol] 650 mg PO NOW STA
Piperacillin/Tazo 3.375 Gram [Zosyn] 3.375 gram in 50 ml IV NOW
Vancomycin 1 Gram/200 ml [Vancocin] 1 gram in 200 ml IV NOW
02/26/24 16:43
Blood Culture Urgent
BRY Source: Blood/Venous
Specimen Description:
02/26/24 16:58
Wound Culture [Wound/Abscess/Other Culture] Urgent
BRY Source: Foot
Specimen Description: Right
Date Specimen was Collected: 02/26/24
Time Specimen was Collected: 16:57
02/26/24 17:48
MRSA Screen Routine
BRY Source: Nose
Specimen Description:
02/26/24 17:53
Admit/Transfer Patient As Directed
Co-Sign Provider:
Level of Care: Inpatient admission
Assign to:: Medical/Surgical
Physician / Group: kristie white
Diagnosis: diabetic foot wound
Reason for Hospitalization: diabetic foot wound
Expected length of stay greater than two midnights?: Yes
ELOS- Estimated Length of Stay in days: 3
I certify the patient meets the requirements for IP care: Yes
Code Status As Directed
Resuscitation Status: Full Code
02/26/24 17:59
PODIATRY CONSULT Routine
Consulting Provider: Pema Topete
Was physician already notified: Yes
Reason for consult: open foot wound diabetic female
02/26/24 18:00
Cefepime HCl [Maxipime] 1,000 mg IV Q8H
VANCOMYCIN Pharmacy to Dose [VANCOCIN Pharmacy to Dose] 1 each Pharmacy To Prepare [Call Pharmacy To Prepare] 0 ml IV PER PROTOCOL
02/26/24 18:01
Vancomycin 1 Gram/200 ml [Vancocin] 1 gram in 200 ml IV NOW
02/26/24 18:02
Blood Culture Urgent
BY[facility] Source: Blood/Venous
Specimen Description:
02/26/24 18:04
HydrALAZINE [Apresoline] 5 mg IV NOW STA
Abnormal Lab Results
02/26/24
12:35
Hgb 11.9 L g/dL
(12.0-16.0)
Hct 35.6 L %
(37.0-47.0)
MPV 10.9 H fL
(7.4-10.4)
Lymphocytes % 18.2 L %
(20.5-51.1)
Glucose 157 H mg/dl
(70-99)
Alkaline Phosphatase 139 H U/L
(38-126)
02/26/24 12:35
02/26/24 12:35
Vital Signs
Initial and Last Documented VS:
Initial Vital Signs
Temp Pulse Resp BP Pulse Ox
98.6 F 71 16 146/98 98
02/26/24 12:27 02/26/24 12:27 02/26/24 12:27 02/26/24 12:27 02/26/24 12:27
Last Documented Vital Signs
Temp Pulse Resp BP Pulse Ox
98.6 F 70 17 170/79 97
02/26/24 12:27 02/26/24 17:45 02/26/24 17:45 02/26/24 17:00 02/26/24 17:45
<Radha Arriola PA-C - Last Filed: 02/26/24 18:41>
MDM/Problems Addressed
Differential Diagnosis Includes:
Not limited to: Cellulitis, lymphangitis, osteomyelitis, diabetic foot ulcer
MDM/Problems Addressed:
Patient is a 73-year-old female history of diabetes presenting for evaluation of worsening wound on right foot. No systemic symptoms. Vital signs are stable, afebrile on arrival. Physical exam as document above. She is in no apparent distress,
nontoxic appearing. There is a open wound on right dorsal foot with surrounding edema, erythema and significant tenderness. Labs obtained in triage show no evidence of leukocytosis. CMP without any clinically significant abnormalities. X-ray of
right foot does show mild soft tissue swelling. Packing removed from wound and wound culture obtained.
Given comorbidities and examination from today�will admit for IV antibiotics. Blood cultures pending. Will start IV antibiotics. Patient admitted to hospitalist
Chronic conditions affecting care:
Diabetes mellitus, hypertension
Acute Exacerbation and/or Progression of Chronic Illness:
Acutely hypertensive
<Radha Arriola PA-C - Last Filed: 02/26/24 18:41>
*Radiology
Radiology exam reviewed: preliminary read by ED provider and radiology read reviewed
*Pulse Oximetry
Patient hypoxic: no
*Critical Care Note
Total Time (30-74mins, 75-104mins- exclusive of procedures): Not Applicable
<Radha Arriola PA-C - Last Filed: 02/26/24 18:41>
Patient Management
Discussion with other providers: Hospitalist
Escalation/DeEscalation of care consider admission/obs:
Admit for IV antibiotics�given comorbidities and evaluation of wound concern for progression to osteo
ED Attending Note
<Radha Arriola PA-C - Last Filed: 02/26/24 18:41>
-
Portions of this chart may have been created with voice recognition software.� Occasional wrong word or��sound alike� substitutions may have occurred due to the inherent limitations of voice recognition software.
<Ej Martin DO - Last Filed: 02/26/24 16:32>
ED Attending Note
Patient seen and examined by attending physician: Yes
I performed the substantive portion of visit, reviewed & personally made and approve the management plan that is documented in note by myself or JULIEN.: Yes
ED Attending Note:
73-year-old female who presents with a wound to the right foot. The patient has been seeing wound care. Wound was a hematoma that started after phone was dropped on her foot. Patient then noticed today how red and swollen the foot was. They have
been changing packing at home. No fevers. Patient is diabetic. Sent by PCP. Exam: Open wound noted to the dorsum of the right foot with surrounding erythema, warmth and swelling. Assessment and plan: IV antibiotics to cover gram-positive plus
Pseudomonas. Admit.
Discharge Plan
Departure
Patient Disposition: Admit
Date of Disposition: 02/26/24
Time of Disposition: 16:52
Presentation/result/management discussed w/ accepting MD/DO: Hospitalist
Discharge Problem:
Cellulitis
Prescriptions:
No Action
lisinopril [Zestril] 40 MG tablet
40 mg PO QPM
metoprolol tartrate 25 MG tablet
25 mg PO DAILY
citalopram 40 mg Tablet
40 mg PO DAILY
bupropion HCl 100 mg Tablet
100 mg PO DAILY
repaglinide 2 mg tablet
2 mg PO DAILY
metoprolol tartrate 25 mg Tablet
50 mg PO QPM
Trulicity 1.5 mg/0.5 mL pen injector
1.5 mg SC MO@1900
acetaminophen 325 MG tablet
650 mg PO Q6H PRN (Reason: mild pain)
pantoprazole [Protonix] 40 mg tablet,delayed release (DR/EC)
40 mg PO DAILY Qty: 30 0RF
Patient Comments:
02/26/2024, pt. unsure if this is morning or evening med.
repaglinide 2 mg Tablet
4 mg PO QPM
clopidogrel 75 mg Tablet
75 mg PO DAILY
fluticasone propionate 50 mcg/actuation [place],Suspension
2 spray INTRANASAL DAILY
ezetimibe 10 mg Tablet
10 mg PO DAILY
Patient Comments:
02/26/2024, pt. unsure if this is morning or evening med.
Slow Release Iron 45 mg tablet
45 mg PO QPM
atorvastatin 80 MG tablet
80 mg PO QPM Qty: 30 0RF
cetirizine 10 MG tablet
10 mg PO DAILY Qty: 30 0RF
trazodone 100 MG tablet
100 mg PO HS Qty: 30 0RF
Interventions
Interventions:
*Risk Screen - Suicide Last Done: 02/26/24 12:27
*General Assessment Last Done: 02/26/24 12:27
*ED COVID-19 Vaccine History Last Done: 02/26/24 12:27
ED-Skin Assessment Last Done: 02/26/24 17:08
Discharge Date and Time
Print Language: GERMAN
[2024-02-26 16:53] VITALS: BP 167/104
[2024-02-26] MEDS: TYLENOL 650 MG PO (16:54)
[2024-02-26] MEDS: ZOSYN 50 IV (16:55)
[2024-02-26 17:00] VITALS: BP 170/79
--- NOTE | 2024-02-26 17:22 | HPS.HSE ---
Family Physician
<DOREEN Carvajal - Last Filed: 02/26/24 18:04>
-
Family Physician: Deborah Boucher
Chief Complaint
<DOREEN Carvajal - Last Filed: 02/26/24 18:04>
-
Open right foot wound with erythema, warmth, drainage
History of Present Illness
73-year-old female complaining of a right anterior foot wound over the last week and a half when she dropped something on it resulting in a blood blister. She was seen by wound care on Saturday 2 days ago where they removed a blood blister and clot
beneath the wound was then packed and to change it daily. Her states when he removed the dressing today it had puslike drainage with surrounding erythema ,warmth and pain. The patient denies fever, chills, chest pain, palpitations,
shortness of breath, cough, abdominal pain, nausea, vomiting, diarrhea. She has past medical history of DM2, PVD, CVA on Plavix, HTN, HLD, GERD, peptic ulcer disease, renal CA with right nephrectomy 2006, seasonal allergies, insomnia, anxiety.
Medical History
<DOREEN Carvajal - Last Filed: 02/26/24 18:04>
Past Medical History
Past Medical History: Reports Other
Additional Past Medical History:
DM2
PVD
CVA on Plavix
HTN
HLD
GERD
peptic ulcer disease
renal CA with right nephrectomy 2006
SOLO LEFT kidney
seasonal allergies
insomnia
anxiety
Past Surgical History: Reports Other
Additional Past Surgical History:
renal CA with right nephrectomy 2006
Social History
Tobacco: Non-smoker
Alcohol: Occasional
Drug: None
Personal:
Living: With Family ()
Employment: Retired
Family History
Family History: CAD (Father had sudden cardiac at age 56 mother of a motor vehicle accident)
Allergies / Home Medications
Allergies reflects when Allergies were last updated in [facility].
Home Medications with original date entered in [facility]
Allergy/Medication List:
Allergies
Allergy/AdvReac Type Severity Reaction Status Date / Time
adhesive tape [Adhesive Tape] Allergy blisters,re Verified 02/26/24 12:29
dness
aspirin [Aspirin] Allergy stomach Verified 02/26/24 12:29
ulcer
history
house dust Allergy Post-nasal Verified 02/26/24 12:29
drip, cough
levofloxacin [From Levaquin] Allergy Nausea / Verified 02/26/24 12:29
Vomiting/diarrhea
mold Allergy Post-nasal Verified 02/26/24 12:29
drip, cough
morphine [Morphine] Allergy severe Verified 02/26/24 12:29
constipation
NSAIDS (Non-Steroidal Allergy 'ANTIINFLAMATORIES Verified 02/26/24 12:29
Anti-Inflamma = ULCERS'
prednisone Allergy 'ANTIINFLAM Verified 02/26/24 12:29
ATORIES=ULC
ERS'
tree and shrub pollen Allergy Post-nasal Verified 02/26/24 12:29
drip, cough
Home Medications
atorvastatin 80 mg tablet 80 mg PO QPM #30 tabs 01/19/20
cetirizine 10 mg tablet 10 mg PO DAILY #30 tabs 01/19/20
trazodone 100 mg tablet 100 mg PO HS #30 tabs 01/19/20
lisinopril 40 mg tablet (Zestril) 40 mg PO QPM Blood pressure 09/19/20
metoprolol tartrate 25 mg tablet 25 mg PO DAILY Blood Pressure 10/30/20
acetaminophen 325 mg tablet 650 mg PO Q6H PRN mild pain 06/01/23
bupropion HCl 100 mg tablet 100 mg PO DAILY Mental Health/Anxiety 06/01/23
citalopram 40 mg tablet 40 mg PO DAILY Mental Health/Anxiety 06/01/23
dulaglutide 1.5 mg/0.5 mL subcutaneous pen injector (Trulicity) 1.5 mg SC MO@1900 Diabetes 06/01/23
metoprolol tartrate 25 mg tablet 50 mg PO QPM 06/01/23
repaglinide 2 mg tablet 2 mg PO DAILY Diabetes 06/01/23
pantoprazole 40 mg tablet,delayed release (Protonix) 40 mg PO DAILY #30 tabs 06/05/23
Slow Release Iron 45 mg PO QPM 02/26/24
clopidogrel 75 mg tablet 75 mg PO DAILY 02/26/24
ezetimibe 10 mg tablet 10 mg PO DAILY 02/26/24
fluticasone propionate 50 mcg/actuation nasal spray,suspension 2 spray intranasal DAILY 02/26/24
repaglinide 2 mg tablet 4 mg PO QPM 02/26/24
Review of Systems
<DOREEN Carvajal - Last Filed: 02/26/24 18:04>
-
History Source: Patient and Family ()
A 12 point ROS was completed and negative except as noted: Yes
Constitutional: Denies Fever or Chills
EENT: Denies Sore Throat or Runny Nose
Respiratory: Denies Cough or Trouble Breathing
Cardiac: Denies Chest Pain, Diaphoresis or Syncope
Abdomen/GI: Denies Abdominal Pain, Nausea, Vomiting, Diarrhea, Constipated, Bloody Stools or Black Stools
: Denies Dysuria, Frequency, Flank Pain, Incontinence, Difficulty Voiding or Urgency
Musculoskeletal: Reports Edema (Bilateral lower legs +1 with underlying PVD brown pigment discoloration); Denies Joint Pain
Skin: Reports Other (Right foot anterior mid aspect open wound with surrounding erythema extending toward talus area, warmth, tenderness on palpation); Denies Itching or Rash
Neurological: Denies Dizzy, Headache or Weakness
Endocrine: Reports No Symptoms
Hematologic/Lymphatic: Reports No Symptoms
Psych: Reports Calm
Physical Exam
<DOREEN Carvajal - Last Filed: 02/26/24 18:04>
Vital Signs
Vital Signs
Temp Pulse Resp BP Pulse Ox
98.6 F 66 17 170/79 96
02/26/24 12:27 02/26/24 17:00 02/26/24 17:00 02/26/24 17:00 02/26/24 17:00
Physical Exam
General: No Apparent Distress, Comfortable and Conversant; No Pain, Fever or Chills
HEENT: NormoCephalic, Anicteric, Moist mucous membranes, [place] Conjunctivae and No Ptosis
Respiratory: Clear; No Wheezes, Rales or Rhonchi
Cardiac: S1/S2, Regular Rhythm and Peripheral Edema (Bilateral +1 lower leg with chronic PVD and chronic brown pigment discoloration); No Murmur, Rub or Gallop
GI: Soft, Non Tender, Non Distended, Normal Bowel Sounds and No Hepatosplenomegaly
Rectal: Deferred by Provider
Genito-urinary: Deferred by me
Musculoskeletal: No Clubbing, No Cyanosis, Edema, Left Lower Extremity (Chronic +1 edema with PVD and chronic brown pigment discoloration) and Edema, Right Lower Extremity (Right foot anterior mid aspect open wound with surrounding erythema
extending toward talus area, warmth, tenderness on palpation,Chronic +1 edema with PVD and chronic brown pigment discoloration); No Edema, Left Upper Extremity or Edema, Right Upper Extremity
Skin: Warm and Dry; No Rash
Neuro: AO x 3, No Motor Deficits, Nonfocal/grossly intact, Cranial Nerves Intact and No Sensory Deficits; No Slurred Speech, Facial Droop or Tremors
Psych: Calm
Laboratory Results
<DOREEN Carvajal - Last Filed: 02/26/24 18:04>
-
02/26/24 12:35
02/26/24 12:35
Laboratory Results
Total Bilirubin 0.6 mg/dl (0.2-1.3) 02/26/24 12:35
AST 21 U/L (14-36) 02/26/24 12:35
ALT 22 U/L (0-35) 02/26/24 12:35
Alkaline Phosphatase 139 U/L (38-126) H 02/26/24 12:35
Data Reviewed
<DOREEN Carvajal - Last Filed: 02/26/24 18:04>
-
Lab Data: Labs Reviewed by me
Impression/Plan
<DOREEN Carvajal - Last Filed: 02/26/24 18:04>
-
Impression/plan:
Admit to [facility]
#Right foot cellulitis in diabetic female
# PVD hx
-Blood cultures x 2, wound culture
-IV vancomycin, IV cefepime
-Consult wound care
-Consult Podiatry
-PT/OT/case under consult
Right foot x-ray:Severe osteoarthrosis of the first metatarsophalangeal joint and hallux sesamoid complex.
No acute fracture or dislocation. No osseous destructive changes. Hammertoe deformities of the second through fifth toes. Plantar calcaneal enthesophyte.
Vascular calcifications. Mild soft tissue swelling about the forefoot, nonspecific.
#Chronic ambulatory dysfunction
Uses cane at baseline
#DM2
-Accu-Cheks with SSI, check HgbA1c
-Continue repaglinide 2 mg a.m. 4 mg p.m., Trulicity 1.5 mg subcu Mondays
#Renal CA with right nephrectomy 2006
#SOLO LEFT kidney
Follow BMP while on antibiotics
#CVA hx 2019
-Continue Zetia 10 mg daily, Plavix 75 mg daily, atorvastatin 80 mg daily
# HTN-benign
170/79, IV hydralazine 5 mg now x 1 dose
Patient missed morning medications
-Continue metoprolol tartrate 25 mg a.m., 50 mg every afternoon, lisinopril 40 mg every afternoon
#HLD
-Continue Zetia 10 mg daily, atorvastatin 80 mg daily
#GERD
#peptic ulcer disease
-Continue Protonix 40 mg daily
#Anxiety
-Continue citalopram 40 mg daily
#Iron deficiency
Continue iron 45 mg daily
#Seasonal allergies
-Continue cetirizine and fluticasone
#Insomnia
-Continue trazodone 100 mg at bedtime
DVT prophylaxis
Subcu heparin
Full code
<Kelsey Frost MD - Last Filed: 02/26/24 18:29>
-
I saw and examined the patient.
The PLUNGER SHOVEL OPERATOR or PA's note was reviewed and I agree with the note.
Comment:
CVS: S1-S2 normal
Chest: CTA B/L
Abdomen: Soft, NT / Bowel sounds present
Extremities: B/L LE mild edema, pulses felt , weak
NOTCH GRINDER: Normal Motor exam and Cranial nerves
Skin- Small deep ulcer dorsal right foot.
Small ulcer just above ankle right
Right foot x-ray:Severe osteoarthrosis of the first metatarsophalangeal joint and hallux sesamoid complex.
No acute fracture or dislocation. No osseous destructive changes. Hammertoe deformities of the second through fifth toes. Plantar calcaneal enthesophyte.
Vascular calcifications. Mild soft tissue swelling about the forefoot, nonspecific.
#Right foot cellulitis in diabetic female
Trauma from phone falling on the foot a week ago
Seen at center
No fever
IV vancomycin, IV cefepime
Consult wound care and Consult Podiatry
GABINO
Wound care
Chronic venous stasis LEs
#Chronic ambulatory dysfunction
Uses cane at baseline
#DM2
Accu-Cheks with SSI, check HgbA1c
Continue repaglinide 2 mg a.m. 4 mg p.m., Trulicity 1.5 mg subcu Mondays
#Renal CA with right nephrectomy 2006
SOLO LEFT kidney
Follow BMP while on antibiotics
#CVA hx 2019
Continue Zetia 10 mg daily, Plavix 75 mg daily, Atorvastatin 80 mg daily
#HTN-benign
170/79, IV hydralazine 5 mg now x 1 dose
Patient missed morning medications
Continue metoprolol tartrate 25 mg a.m., 50 mg every afternoon, lisinopril 40 mg every afternoon
#Hyperlipidemia
Continue Zetia 10 mg daily, atorvastatin 80 mg daily
#GERD
#Peptic ulcer disease
Continue Protonix 40 mg daily
#Anxiety
Continue citalopram,Wellbutrin 40 mg daily
#Iron deficiency
Continue iron 45 mg daily
#Seasonal allergies
Continue cetirizine and fluticasone
#Insomnia
Continue trazodone 100 mg at bedtime
#DVT prophylaxis
Subcu heparin
#Full code
D/W at bed side
Impression/plan:
Admit to MedSurg
#Right foot cellulitis in diabetic female
# PVD hx
-Blood cultures x 2, wound culture
-IV vancomycin, IV cefepime
-Consult wound care
-Consult Podiatry
-PT/OT/case under consult
Right foot x-ray:Severe osteoarthrosis of the first metatarsophalangeal joint and hallux sesamoid complex.
No acute fracture or dislocation. No osseous destructive changes. Hammertoe deformities of the second through fifth toes. Plantar calcaneal enthesophyte.
Vascular calcifications. Mild soft tissue swelling about the forefoot, nonspecific.
#Chronic ambulatory dysfunction
Uses cane at baseline
#DM2
-Accu-Cheks with SSI, check HgbA1c
-Continue repaglinide 2 mg a.m. 4 mg p.m., Trulicity 1.5 mg subcu Mondays
#Renal CA with right nephrectomy 2006
#SOLO LEFT kidney
Follow BMP while on antibiotics
#CVA hx 2019
-Continue Zetia 10 mg daily, Plavix 75 mg daily, atorvastatin 80 mg daily
# HTN-benign
170/79, IV hydralazine 5 mg now x 1 dose
Patient missed morning medications
-Continue metoprolol tartrate 25 mg a.m., 50 mg every afternoon, lisinopril 40 mg every afternoon
#HLD
-Continue Zetia 10 mg daily, atorvastatin 80 mg daily
#GERD
#peptic ulcer disease
-Continue Protonix 40 mg daily
#Anxiety
-Continue citalopram 40 mg daily
#Iron deficiency
Continue iron 45 mg daily
#Seasonal allergies
-Continue cetirizine and fluticasone
#Insomnia
-Continue trazodone 100 mg at bedtime
DVT prophylaxis
Subcu heparin
Full code
[2024-02-26] MEDS: VANCOCIN 200 IV ×2 (17:27→18:33)
--- NOTE | 2024-02-26 19:42 | PHA.VAN.IN ---
Addendum entered and electronically signed by Lindsey Kovacs Shital 02/27/24 09:11:
Correction: Vancomycin 1000mg Q12H provided a trough of 20 during February 2017 admission
Original Note:
Assessment
- Assessment
Renal Function: Appears similar to baseline
Concomitant Antimicrobials: CEFEPIME
- Previous Dosing Experience
Previous Regimen: 750MG IV Q12H
Date of Regimen: 02/21/17
Provided Trough of: UNKNOWN
Provided AUC of: UNKNOWN
Patient's SCR is: Similar to previous dosing experience
Patient's weight is: Similar to previous dosing experience
AUC Dosing Plan
- Dosing Variables
Dosing Weight (kg): 82
Dosing CrCl (ml/min): 62
Vd coefficient (L/kg): 0.6
- Empiric Dosing
Initial / Loading Dose: 2GM
Maintenance Regimen: 1250MG IV Q24H
Estimated AUC (mcg*h/mL): 474
Estimated Peak (mcg*h/mL): 34.4
Estimated Trough (mcg/ml): 9.8
Estimated Half Life (H): 12.4
Pharmacokinetics Vancomycin I
- -
Patient Age: 73
Patient Sex: Female
Vancomycin Day #: 1
Indication: Diabetic Foot
Requesting Provider: ANDRES
Pertinent Antimicrobial Allergies:
Allergies
levofloxacin [From Levaquin] Allergy (Verified 02/26/24 12:29)
Nausea / Vomiting/diarrhea
Height / Weight:
Height 5 ft 2.3 in
Actual Weight 82 kg
Pertinent Past Medical History: IDDM
- Vital Signs / Lab Results
Temp Pulse Resp BP Pulse Ox
98.6 F 70 17 170/79 97
02/26/24 12:27 02/26/24 17:45 02/26/24 17:45 02/26/24 17:00 02/26/24 17:45
Lab Results - Hematology
02/26/24
12:35
WBC 7.8
Lab Results - Chemistry
02/26/24
12:35
BUN 15
Creatinine 0.8
Albumin 3.8
Microbiology Results
02/26/24 16:58 Gram Stain - Preliminary
Foot - Right
[2024-02-26 21:27] VITALS: BP 181/97; BMI 28.4
[2024-02-26 21:27] LABS: Glucose - Point of Care 114 mg/dl (70-99)
--- NOTE | 2024-02-26 21:30 | PTCARENOTE ---
Received patient from ED via stretcher. Patient ambulated from stretcher to bed with minimal assistance. AAOx3, wound to R anterior foot with small amount of purulent drainage. Oriented patient to room and placed call rubin within reach.
[2024-02-26] MEDS: COLACE PO (21:44)
[2024-02-26] MEDS: PRANDIN 4 MG PO (22:01)
[2024-02-26] MEDS: LIPITOR 80 MG PO (22:02)
[2024-02-26] MEDS: ZESTRIL 40 MG PO (22:02)
[2024-02-26] MEDS: STERILE WATER FOR INJECTION 10 ML IV (22:03)
[2024-02-26] MEDS: MAXIPIME 1000 MG IV (22:03)
[2024-02-26] MEDS: LOPRESSOR 50 MG PO (22:03)
[2024-02-26] MEDS: HEPARIN 5000 UNITS SC (22:05)
[2024-02-26 23:57] VITALS: BP 165/87
[2024-02-27] MEDS: ROXICODONE 2.5 MG PO ×3 (00:07→23:53)
[2024-02-27] MEDS: DESYREL 100 MG PO ×2 (00:07→23:53)
[2024-02-27 03:34] VITALS: BP 137/88
[2024-02-27] MEDS: MAXIPIME 1000 MG IV ×3 (05:14→21:00)
[2024-02-27] MEDS: STERILE WATER FOR INJECTION 10 ML IV ×3 (05:14→21:00)
[2024-02-27] MEDS: VANCOCIN 275 MG IV (05:17)
[2024-02-27 05:29] LABS: % Basophils 0.4 % (0-2); % Eosinophils 7.3 % (0-6); % Immature Granulocytes 0.1 % (0-0.5); % Lymphocytes 29.3 % (20.5-51.1); % Monocytes 7.1 % (1.7-9.3); % Neutrophils 55.8 % (42.2-75.2); Absolute Eosinophils 0.6 10^3/uL (0-0.7); Absolute Lymphocytes 2.2 10^3/uL (1.2-3.4); Absolute Monocytes 0.5 10^3/uL (0.1-0.6); Absolute Neutrophils 4.3 10^3/uL (1.4-6.5); Hematocrit 34.9 % (37.0-47.0); Hemoglobin 11.4 g/dL (12.0-16.0); Mean Corp Hgb Conc. 32.7 g/dL (33.0-37.0); Mean Corpuscular Hgb 27.7 pg (27.0-31.0); Mean Corpuscular Volume 84.9 fL (81.0-99.0); Mean Platelet Volume 10.3 fL (7.4-10.4); Nucleated Red Blood Cells % 0 %; Platelet Count 251 10^3/uL (130-400); Red Blood Cell Count 4.11 10^6/uL (4.20-5.40); Red Cell Dist. Width 14.3 % (11.5-14.5); White Blood Cell Count 7.6 10^3/uL (4.8-10.8)
[2024-02-27] MEDS: TYLENOL 650 MG PO (05:31)
[2024-02-27 06:04] LABS: Blood Urea Nitrogen 12 mg/dl (7-17); Calcium 9.3 mg/dl (8.4-10.2); Carbon Dioxide 28 mmol/L (22-30); Chloride 103 mmol/L (98-107); Estimated Creatinine Clearance 59 ml/min; Glucose 77 mg/dl (70-99); Potassium 3.7 mmol/L (3.5-5.1); Sodium 139 mmol/L (135-145); eGFR > 60.00
[2024-02-27 06:48] LABS: Vitamin B12 249 pg/ml (239-931)
[2024-02-27 07:18] LABS: Glucose - Point of Care 80 mg/dl (70-99)
[2024-02-27 07:55] VITALS: BP 150/82
[2024-02-27] MEDS: NOVOLOG FLEXPEN-LOW RESISTANCE SC (08:00)
[2024-02-27 08:49] LABS: Glycohemoglobin (HgbA1c) 7.1 % (4.0-5.6)
--- NOTE | 2024-02-27 09:05 | PHA.VAN.FU ---
Vancomycin Assessment / Plan
- Assessment
Renal Function: Stable
WBC's are: WNL
In the past 24 hrs, patient has been: Afebrile
Concomitant Antimicrobials: cefepime
- Dosing Plan
Continue: Vanc 1250mg Q24H
- Monitoring Plan
No level(s) ordered at this time: consider levels in next few days
- Follow Up
Pharmacy will continue to follow.
Vancomycin Follow UP
- -
Patient Age: 73
Patient Sex: Female
Vancomycin Day #: 2
Indication: Diabetic Foot
Requesting Provider: Donovan Carvajal
Pertinent Antimicrobial Allergies:
levofloxacin - Nausea / Vomiting/diarrhea
Height / Weight:
Height 5 ft 3 in
Actual Weight 72.773 kg
Pertinent Past Medical History: DM2, PVD, R. nephrectomy
- Vital Signs / Lab Results
Temp Pulse Resp BP Pulse Ox
98 F 76 16 137/88 94
02/27/24 03:34 02/27/24 03:34 02/27/24 03:34 02/27/24 03:34 02/27/24 03:34
Lab Results - Hematology
02/26/24 02/27/24
12:35 05:13
WBC 7.8 7.6
Lab Results - Chemistry
02/26/24 02/27/24
12:35 05:13
BUN 15 12
Creatinine 0.8 0.8
Estimated Creat Clear 59
Albumin 3.8
Microbiology Results
02/26/24 16:58 Gram Stain - Preliminary
Foot - Right
[2024-02-27] MEDS: CELEXA 40 MG PO (09:56)
[2024-02-27] MEDS: WELLBUTRIN REGULAR RELEASE 100 MG PO (09:56)
[2024-02-27] MEDS: PLAVIX 75 MG PO (09:56)
[2024-02-27] MEDS: LOPRESSOR 25 MG PO (09:57)
[2024-02-27] MEDS: ZETIA 10 MG PO (09:57)
[2024-02-27] MEDS: ZYRTEC 10 MG PO (09:58)
[2024-02-27] MEDS: HEPARIN 5000 UNITS SC ×2 (09:58→20:59)
[2024-02-27] MEDS: COLACE 100 MG PO (09:58)
[2024-02-27] MEDS: PRANDIN 2 MG PO (09:58)
[2024-02-27] MEDS: PROTONIX 40 MG PO (09:58)
[2024-02-27 11:34] LABS: Glucose - Point of Care 264 mg/dl (70-99)
--- NOTE | 2024-02-27 11:55 | WOUNDNOTE ---
R DORSAL FOOT (with photo flash)
--- NOTE | 2024-02-27 11:55 | WOUNDNOTE ---
R CALF (LOWER MEDIAL)
--- NOTE | 2024-02-27 11:56 | WOUNDNOTE ---
R ABDOMEN (LOWER FOLD)
--- NOTE | 2024-02-27 12:18 | WOUNDNOTE ---
WO RN note: Patient admitted with diabetic foot wound, possible infection. Patient followed by [facility]. Her does her wound care at home.
See H&P for complete history.
PMH: 11/2023 admission for LLE hematoma (was seen by vascular) after fall at home, DM, CVA with R sided weakness, PAD, venous edema, PUD, renal cancer, R nephrectomy 207, uses cane.
Wound Location and type/assessment: Patient admitted with: R dorsal foot full thickness to muscle wound d/t trauma (her cell phone dropped onto her foot) s/p debrided hematoma at [facility] in recent past. Current wound care has been packing and she
wears what sounds like knee high Tubigrip with Velcro compression knee high garments. L heel small bruise. L lateral ankle newly/almost healed linear wound. R anterior ankle newly healed ulcer. Abdominal dermal wound r/t friction from her pant waist
band. Yeast rash R abdominal fold. Sacral crease mild MASD. L posterior calf resolving bruise/hematoma. R distal 3rd and 5th toes with small dry red abrasion. +Pedal pulses faintly palpated. Arterial Doppler result pending.
Appetite: fair-good.
Pressure redistribution devices in place: [employer] Accumax. Patient turns self on R side. She needs help turning to her L. She ambulates with a cane. She wears [employer] sneakers at home.
Plan: dressing changed R foot. Patient incontinent of urine. Vanessa care given. Heels off bed with air chair cushion. Instructed patient pressure injury prevention measures. Podiatry consulted who will manage R foot wound.
Will confirm orders with hospitalist and discussed with RN Latanya Pacheco
Care plan to be updated and will follow peripherally as needed.
Note to case management requested for discharge: VN if patient wants.
Recommend follow up at wound care center upon discharge.
--- NOTE | 2024-02-27 12:49 | CON.MD ---
Consultation - Medical
-
73 year old female admitted with cellulitis and ulcer dorsal right foot. Last weeks she dropped her cellphone on the top of her foot resulting in a large blister. She was treated by the wound care center where the area was debrided and packed.
When her attempted to change the dressing, he noted purulent drainage and brought her to the ED. Denies fever, chills
PMH includes type 2 DM, status post CVA with RLE weakness, left kidney nephrectomy due to CA, CVI, HTN, HDL
HgbA1c 7.1% with wbc wnl
Preliminary wound culture foot shows S. aureus
Radiographs show osteoarthritis at the first MTPJ with no cortical abnormalities at the level of the ulceration to indicate osteomyelitis
On exam, pedal pulses are palpable but diminished DP and PT bilaterally. Venous stasis dermatitis noted bilateral legs, ankles and dorsal feet with pitting edema. Right dorsal foot with 1 cm ulceration probing to deep tissue. wound edges stable
with healthy granulation tissue visible. No drainage noted at this time and no malodor. Cellulitis receded from ankle level marked to dorsal forefoot and now 4 cm around the periphery of the wound. No pain plantar foot and no edema or erythema
plantarly. Dorsal firer watertender on palpation with focal edema and erythema. Right toes contracted, likely due to previous stroke. Mild peripheral neuropathy only.
Impression/Plan
-Ulcer dorsal right foot secondary to injury and hematoma
Cellulitis resolving with no soft tissue necrosis visible.
Continue current wound care with light packing. Does not appear that surgical debridement is necessary at this time. Suggest return to wound care center upon discharge
Continue current IV antibiotic therapy for one additional day and watch for cellulitis to continue to recede. Preliminary culture shows Staph Aureus and suggest course of oral antibiotics upon discharge
-DM type 2
-Venous insufficiency/venous stasis dermatitis
-HX CVA on plavix
[2024-02-27 13:06] VITALS: BP 142/76; PULSE 76; O2SAT 93
[2024-02-27] MEDS: NOVOLOG FLEXPEN-LOW RESISTANCE 3 UNITS SC (13:19)
--- NOTE | 2024-02-27 14:33 | W.PN.HOSP.TC ---
Today's Communication/Plan
-
Compression bandage to Legs
Trial of a small dose of Lasix
IV AB
Assessment / Plan
Assessment / Plan
CVS: S1-S2 normal
Chest: CTA B/L
Abdomen: Soft, NT / Bowel sounds present
Extremities: B/L LE mild edema, pulses felt , weak
Right foot x-ray:Severe osteoarthrosis of the first metatarsophalangeal joint and hallux sesamoid complex.
No acute fracture or dislocation. No osseous destructive changes. Hammertoe deformities of the second through fifth toes. Plantar calcaneal enthesophyte.
Vascular calcifications. Mild soft tissue swelling about the forefoot, nonspecific.
#Right foot cellulitis in diabetic female
Trauma from phone falling on the foot a week ago
Seen at center
No fever
IV vancomycin, IV cefepime
Podiatry evaluation appreciated
Wound cultures with Staphylococcus aureus identification pending
GABINO-AB 1.07. Infrapopliteal disease. Will request vascular surgery evaluation
Chronic venous stasis LEs-Stu bandages
#Chronic ambulatory dysfunction
Uses cane at baseline
#DM2
Accu-Cheks with SSI, [id number]-1.1
Continue repaglinide 2 mg a.m. 4 mg p.m., Trulicity 1.5 mg u Mondays
#Renal CA with right nephrectomy 2006
SOLO LEFT kidney
Follow BMP while on antibiotics
#CVA hx 2019
Continue Zetia 10 mg daily, Plavix 75 mg daily, Atorvastatin 80 mg daily
#HTN-benign
Continue metoprolol tartrate 25 mg a.m., 50 mg every afternoon, lisinopril 40 mg every afternoon
#Hyperlipidemia
Continue Zetia 10 mg daily, atorvastatin 80 mg daily
#GERD
#Peptic ulcer disease
Continue Protonix 40 mg daily
#Anxiety
Continue citalopram,Wellbutrin 40 mg daily
#Iron deficiency
Continue iron 45 mg daily
#Seasonal allergies
Continue cetirizine and fluticasone
#Insomnia
Continue trazodone 100 mg at bedtime
#DVT prophylaxis
Subcu heparin
#Full code
D/W at bed side
Anticipated Discharge: Within 24 hours
Subjective/Interval History
-
Date of Service: February 27, 2024
Objective Data
-
Labs:
Laboratory Results
02/27/24
05:13
WBC 7.6
Hgb 11.4 L
Hct 34.9 L
Plt Count 251
Sodium 139
Potassium 3.7
Chloride 103
Carbon Dioxide 28
BUN 12
Creatinine 0.8
Glucose 77
Calcium 9.3
Vital Signs:
Vital Signs
Temp Pulse Resp BP Pulse Ox
98.2 F 73 18 154/84 95
02/27/24 07:55 02/27/24 09:57 02/27/24 07:55 02/27/24 09:57 02/27/24 10:00
[2024-02-27 15:14] VITALS: BP 139/79; PULSE 76
[2024-02-27] MEDS: LASIX 20 MG PO (15:15)
[2024-02-27] MEDS: KCL 20 MEQ PO (15:15)
--- NOTE | 2024-02-27 15:50 | CON.VAS ---
Addendum entered and electronically signed by John Montes De Oca III, MD 02/28/24 11:58:
This patient was seen and examined with DOREEN Felix and DOREEN Lopez. I agree with the history and physical exam as well as the assessment and plan. I have the following additions:
Seen previously in the office in February 2022 for venous insufficiency and PAD she did not follow-up as scheduled/recommended
Now returns with right dorsal foot hematoma and associated wound after dropping her phone on her foot a week ago.
I reviewed her arterial studies.
She has a palpable DP pulse adjacent to the small dorsal foot wound
Her foot is warm and nonischemic appearing
There is bruising and soft tissue edema surrounding the dorsal foot wound
Based on her pulse exam my recommendation is continued local wound care, gentle compression and elevation as tolerated
She should follow-up with me in the office in about a month for a wound check and we will reestablish ongoing surveillance at that point.
Signed:
John Montes De Oca III, MD
[facility] Surgery
[phone] (cell)
Original Note:
Consultation
Consultation Request
Date/Time Consultation Performed: 02/27/24 1500
Requesting Provider: Hospitalist
Performing Provider: Leslye Ledesma NP-C for John Montes De Oca III, MD
Reason for Consultation: Right foot dorsum wound s/p trauma
Medical History
-
Chief Complaint: Right foot dorsum wound s/p trauma
History of Present Illness:
This is a 73-year-old female with significant past medical history of hypertension hyperlipidemia, anxiety, and CVA admitted to the hospital due to cellulitis status post trauma to right dorsum of foot. Patient is known to our service as she was
recently evaluated in the emergency department on 12/13/2023 status post mechanical fall in her closet lacerating her chin and left early. Patient endorses complete healing of left early laceration. She now presents following trauma to her right foot
after dropping her cell phone on her foot roughly a week ago. She was initially evaluated by wound care on 02/24/2024 where they I&D and blister and left instructions to change packing daily. However, her significant other noticed purulent drainage
with accompanying erythema, warmth, and edema yesterday prompting ED evaluation. Currently patient denies nausea, vomiting, fever, chills, decrease in sensation, severe pain to right foot. Patient denies claudication or rest pain. Ultrasound of
bilateral extremity arterial with GABINO/TBI obtained, bilateral GABINO with normal limits, right TBI mildly decreased at 0.63, monophasic waveform noted at PT and DP artery at right side.
Past Medical History
Past Medical History: CVA, GERD, HTN, Hypercholesterolemia, NIDDM and Other (Peripheral vascular disease, peptic ulcer disease, Renal CA with right nephrectomy 2006)
Social History
Tobacco: Non-Smoker
Personal:
Living: With Family
Allergies / Home Medications
Allergy/AdvReac Type Severity Reaction Status Date / Time
adhesive tape [Adhesive Tape] Allergy blisters,re Verified 02/26/24 12:29
dness
aspirin [Aspirin] Allergy stomach Verified 02/26/24 12:29
ulcer
history
house dust Allergy Post-nasal Verified 02/26/24 12:29
drip, cough
levofloxacin [From Levaquin] Allergy Nausea / Verified 02/26/24 12:29
Vomiting/diarrhea
mold Allergy Post-nasal Verified 02/26/24 12:29
drip, cough
morphine [Morphine] Allergy severe Verified 02/26/24 12:29
constipation
NSAIDS (Non-Steroidal Allergy 'ANTIINFLAMATORIES Verified 02/26/24 12:29
Anti-Inflamma = ULCERS'
prednisone Allergy 'ANTIINFLAM Verified 02/26/24 12:29
ATORIES=ULC
ERS'
tree and shrub pollen Allergy Post-nasal Verified 02/26/24 12:29
drip, cough
�Medication �Instructions �Recorded �Confirmed �Type
atorvastatin 80 mg tablet 80 mg PO QPM #30 tabs 01/19/20 02/26/24 Rx
cetirizine 10 mg tablet 10 mg PO DAILY #30 tabs 01/19/20 02/26/24 Rx
trazodone 100 mg tablet 100 mg PO HS #30 tabs 01/19/20 02/26/24 Rx
lisinopril 40 mg tablet (Zestril) 40 mg PO QPM Blood pressure 09/19/20 02/26/24 History
metoprolol tartrate 25 mg tablet 25 mg PO DAILY Blood Pressure 10/30/20 02/26/24 History
acetaminophen 325 mg tablet 650 mg PO Q6H PRN mild pain 06/01/23 02/26/24 History
bupropion HCl 100 mg tablet 100 mg PO DAILY Mental 06/01/23 02/26/24 History
Health/Anxiety
citalopram 40 mg tablet 40 mg PO DAILY Mental 06/01/23 02/26/24 History
Health/Anxiety
dulaglutide 1.5 mg/0.5 mL 1.5 mg SC MO@1900 Diabetes 06/01/23 02/26/24 History
subcutaneous pen injector
(Trulicity)
metoprolol tartrate 25 mg tablet 50 mg PO QPM Blood Pressure 06/01/23 02/26/24 History
repaglinide 2 mg tablet 2 mg PO DAILY Diabetes 06/01/23 02/26/24 History
pantoprazole 40 mg tablet,delayed 40 mg PO DAILY #30 tabs 06/05/23 02/26/24 Rx
release (Protonix)
Slow Release Iron 45 mg PO QPM Supplement 02/26/24 02/26/24 History
clopidogrel 75 mg tablet 75 mg PO DAILY Blood Clot 02/26/24 02/26/24 History
Prevention/Tx
ezetimibe 10 mg tablet 10 mg PO DAILY High Cholesterol 02/26/24 02/26/24 History
fluticasone propionate 50 2 spray intranasal DAILY Allergies 02/26/24 02/26/24 History
mcg/actuation nasal
spray,suspension
repaglinide 2 mg tablet 4 mg PO QPM Diabetes 02/26/24 02/26/24 History
Review of Systems
-
History Source: Patient
Constitutional: Reports No Symptoms
EENT: Reports No Symptoms
Respiratory: Reports No Symptoms
Cardiac: Reports No Symptoms
Vascular: Denies Leg Pain / Claudication, Numbness or Tingling
Abdomen/GI: Reports No Symptoms
: Reports No Symptoms
Musculoskeletal: Reports No Symptoms
Skin: Reports Other (Right foot dorsum wound)
Neurological: Reports No Symptoms
Endocrine: Reports No Symptoms
Physical Exam
Vital Signs
Temp Pulse Resp BP Pulse Ox
98.2 F 73 18 154/84 95
02/27/24 07:55 02/27/24 09:57 02/27/24 07:55 02/27/24 09:57 02/27/24 10:00
Lab Results
02/27/24 05:13
02/27/24 05:13
Physical Exam
General: No Apparent Distress and Comfortable
HEENT: Normocephalic, Anicteric and Atraumatic
Respiratory: Non Labored Respirations
Cardiac: Negative JVD
Breast: Deferred by me
GI: Soft, Non Tender and Non Distended
Musculoskeletal: Edema (Bilateral lower extremity +1 edema)
Skin: Warm and Other (Wound on dorsal aspect of foot, currently with packing, scant erythema, surrounding edema)
Neuro: AO x 3
Pulses: Bilateral Dorsalis Pedis: +2 and Bilateral Posterior Tibial: Doppler
Assessment / Plan
-
Assessment: 73-year-old female with right foot wound status post trauma to foot, with mildly decreased GABINO and monophasic waveform suggesting possible infrapopliteal arterial disease.
Plan:
Surgical plan per attending.
I performed this shared service with the attending. I evaluated the patient [id number] and have entered clinical documentation as shown in the encounter note. I performed the following component(s): history and physical exam. Note that medical
decision making is not final until attested by vascular attending.
[2024-02-27 15:55] VITALS: BP 139/79
--- NOTE | 2024-02-27 16:35 | CM ---
Met with patient and her at bedside; initial assessment completed
Pharmacy verified[facility] [place], [place]
Patient lives with in a multilevel home; 2 steps to enter; 14 steps between floors; railings present
PLOF: history of CVA; right sided weakness; patient reports she is independent with ADLs, ambulates with a cane; uses stair glide to 2nd floor; no longer drives
DME: rolling walker (does not use it), cane, Glucometer
SNF/Rehab/Home Health utilization history: [facility] in 2020; Home Health with [facility]
Transportation: will provide ride home
Plan: will monitor for discharge needs; goal is home; if home health VN needed, [facility] is preference; per PT, no skilled PT needed
[2024-02-27 16:49] LABS: Glucose - Point of Care 172 mg/dl (70-99)
[2024-02-27] MEDS: NOVOLOG FLEXPEN-LOW RESISTANCE 1 UNITS SC (16:59)
[2024-02-27] MEDS: LIPITOR 80 MG PO (18:18)
[2024-02-27] MEDS: PRANDIN 4 MG PO (18:18)
[2024-02-27] MEDS: LOPRESSOR 50 MG PO (18:18)
[2024-02-27] MEDS: ZESTRIL 40 MG PO (18:18)
[2024-02-27] MEDS: COLACE PO (20:57)
[2024-02-27] MEDS: DESENEX/MITRAZOL/ZEASORB 1 APPLIC TOPICAL (20:58)
[2024-02-27 21:27] LABS: Glucose - Point of Care 158 mg/dl (70-99)
[2024-02-28 00:07] VITALS: BP 136/83
[2024-02-28] MEDS: VANCOCIN 275 MG IV (05:34)
[2024-02-28] MEDS: STERILE WATER FOR INJECTION 10 ML IV ×2 (05:35→14:32)
[2024-02-28] MEDS: MAXIPIME 1000 MG IV ×2 (05:35→14:32)
[2024-02-28 07:30] LABS: Glucose - Point of Care 165 mg/dl (70-99)
[2024-02-28 07:55] VITALS: BP 137/85
[2024-02-28] MEDS: NOVOLOG FLEXPEN-LOW RESISTANCE 1 UNITS SC ×2 (08:00→12:58)
[2024-02-28 08:07] LABS: % Basophils 0.3 % (0-2); % Eosinophils 6.8 % (0-6); % Immature Granulocytes 0.2 % (0-0.5); % Lymphocytes 33.5 % (20.5-51.1); % Neutrophils 51.2 % (42.2-75.2); Absolute Eosinophils 0.5 10^3/uL (0-0.7); Absolute Lymphocytes 2.2 10^3/uL (1.2-3.4); Absolute Monocytes 0.5 10^3/uL (0.1-0.6); Absolute Neutrophils 3.4 10^3/uL (1.4-6.5); Hematocrit 34.9 % (37.0-47.0); Hemoglobin 11.2 g/dL (12.0-16.0); Mean Corp Hgb Conc. 32.1 g/dL (33.0-37.0); Mean Corpuscular Hgb 27.3 pg (27.0-31.0); Mean Corpuscular Volume 85.1 fL (81.0-99.0); Mean Platelet Volume 10.8 fL (7.4-10.4); Nucleated Red Blood Cells % 0 %; Platelet Count 254 10^3/uL (130-400); Red Cell Dist. Width 14.4 % (11.5-14.5); White Blood Cell Count 6.7 10^3/uL (4.8-10.8)
[2024-02-28 08:23] LABS: Blood Urea Nitrogen 17 mg/dl (7-17); Calcium 9.2 mg/dl (8.4-10.2); Carbon Dioxide 26 mmol/L (22-30); Chloride 102 mmol/L (98-107); Estimated Creatinine Clearance 52 ml/min; Glucose 149 mg/dl (70-99); Potassium 4.1 mmol/L (3.5-5.1); Sodium 135 mmol/L (135-145); eGFR > 60.00
[2024-02-28] MEDS: PROTONIX 40 MG PO (09:11)
[2024-02-28] MEDS: ZYRTEC 10 MG PO (09:11)
[2024-02-28] MEDS: WELLBUTRIN REGULAR RELEASE 100 MG PO (09:11)
[2024-02-28] MEDS: PRANDIN 2 MG PO (09:11)
[2024-02-28] MEDS: COLACE 100 MG PO (09:11)
[2024-02-28] MEDS: PLAVIX 75 MG PO (09:11)
[2024-02-28] MEDS: CELEXA 40 MG PO (09:11)
[2024-02-28] MEDS: ZETIA 10 MG PO (09:12)
[2024-02-28] MEDS: HEPARIN 5000 UNITS SC (09:12)
[2024-02-28] MEDS: LOPRESSOR 25 MG PO (09:12)
--- NOTE | 2024-02-28 10:09 | W.PN.HOSP.TC ---
Addendum entered and electronically signed by Kelsey Frost MD 02/28/24 14:24:
D/W Pharmacy 4 times a day OK
Discharge time 38 min
Original Note:
Today's Communication/Plan
-
One more dose of cefepime at 2
Then change to Keflex - Pharmacy to check dose
Assessment / Plan
Assessment / Plan
CVS: S1-S2 normal
Chest: CTA B/L
Abdomen: Soft, NT / Bowel sounds present
Extremities: edema better, pulses felt , weak
Right foot x-ray:Severe osteoarthrosis of the first metatarsophalangeal joint and hallux sesamoid complex.
No acute fracture or dislocation. No osseous destructive changes. Hammertoe deformities of the second through fifth toes. Plantar calcaneal enthesophyte.
Vascular calcifications. Mild soft tissue swelling about the forefoot, nonspecific.
#Right foot cellulitis in diabetic female
Venous insufficiency/venous stasis dermatitis- Pt aware that she needs to do [id number] to avoid future venous stasis ulcers
Trauma from cell phone falling on the foot a week ago
Seen at center at
Vascular eval [id number]- No interventions
Podiatry evaluation appreciated
Wound cultures with Staphylococcus aureus MSSA and also MRSA screen neg
Vanco stopped
Chronic venous stasis LEs-Stu bandages- Compression discussed.
#Chronic ambulatory dysfunction
Uses cane at baseline
#DM2
Accu-Cheks with SSI, [id number]-3.1
Continue repaglinide 2 mg a.m. 4 mg p.m., Trulicity 1.5 mg subcu Mondays
#Renal CA with right nephrectomy 2006
SOLO LEFT kidney
#CVA hx 2019
Continue Zetia 10 mg daily, Plavix 75 mg daily, Atorvastatin 80 mg daily
#HTN-benign
Continue metoprolol tartrate 25 mg a.m., 50 mg every afternoon, lisinopril 40 mg every afternoon
#Hyperlipidemia
Continue Zetia 10 mg daily, atorvastatin 80 mg daily
#GERD
#Peptic ulcer disease
Continue Protonix 40 mg daily
#Anxiety
Continue citalopram,Wellbutrin 40 mg daily
#Iron deficiency
Continue iron 45 mg daily
#Seasonal allergies
Continue cetirizine and fluticasone
#Insomnia
Continue trazodone 100 mg at bedtime
#DVT prophylaxis
Subcu heparin
#Full code
D/W RN
D/W Vascular and Podiatry.
Anticipated Discharge: Today
Subjective/Interval History
-
Date of Service: February 28, 2024
Objective Data
-
Labs:
Laboratory Results
02/28/24
07:02
WBC 6.7
Hgb 11.2 L
Hct 34.9 L
Plt Count 254
Sodium 135
Potassium 4.1
Chloride 102
Carbon Dioxide 26
BUN 17
Creatinine 0.9
Glucose 149 H
Calcium 9.2
Vital Signs:
Vital Signs
Temp Pulse Resp BP Pulse Ox
97.6 F 68 18 140/95 94
02/28/24 07:55 02/28/24 09:12 02/28/24 07:55 02/28/24 09:12 02/28/24 07:55
I&O
02/27/24 02/28/24 02/29/24
06:59 06:59 06:59
Intake Total 810 / 810
Balance 810 / 810
[2024-02-28] MEDS: HYDROPHOR 1 APPLIC TOPICAL (11:18)
[2024-02-28] MEDS: DESENEX/MITRAZOL/ZEASORB 1 APPLIC TOPICAL (11:18)
--- NOTE | 2024-02-28 11:21 | CM ---
Addendum entered by Iman Crane 02/28/24 15:24:
Met with patient at the bedside
[facility] liaison reported that patient declined home VN services; her will manage wound care; and plans to resume outpatient therapy
Addendum entered by Iman Crane 02/28/24 15:04:
Plan: discharge to home today with [facility] health [facility]; will transport home
signed IMM from 02/26/24 on the chart
Original Note:
Case Management Consult completed; home health referral for VN sent to [facility] liaison via [employer] [facility]
[2024-02-28 12:55] LABS: Glucose - Point of Care 193 mg/dl (70-99)
--- NOTE | 2024-02-28 14:24 | W.DS.TRANS ---
Addendum entered and electronically signed by Kelsey Frost MD 02/28/24 19:08:
Dictation- [id number]
Original Note:
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
-
Discharge Instructions:
Discharge Diagnosis/Procedures Cellulitis of the foot, venous insufficiency and
venous stasis dermatitis, ambulatory
dysfunction, diabetes, solitary kidney, history
of CVA, hypertension, high cholesterol, GERD,
anxiety, iron deficiency, seasonal allergies,
insomnia
Diet Diabetic, Carb Controlled
Activity As tolerated,With assistance
Driving Restrictions No driving
Other Services VN
Instructions:
Stand-Alone Forms:
Changes to Home Medications: Yes
Discharge Medications:
DC Medications w/original date entered in mention
lisinopril 40 mg tablet (Zestril) 40 mg PO QPM Blood pressure 09/19/20
metoprolol tartrate 25 mg tablet 25 mg PO DAILY Blood Pressure 10/30/20
acetaminophen 325 mg tablet 650 mg PO Q6H PRN mild pain 06/01/23
bupropion HCl 100 mg tablet 100 mg PO DAILY Mental Health/Anxiety 06/01/23
citalopram 40 mg tablet 40 mg PO DAILY Mental Health/Anxiety 06/01/23
dulaglutide 1.5 mg/0.5 mL subcutaneous pen injector (Trulicity) 1.5 mg SC MO@1900 Diabetes 06/01/23
metoprolol tartrate 25 mg tablet 50 mg PO QPM Blood Pressure 06/01/23
repaglinide 2 mg tablet 2 mg PO DAILY Diabetes 06/01/23
Slow Release Iron 45 mg PO QPM Supplement 02/26/24
clopidogrel 75 mg tablet 75 mg PO DAILY Blood Clot Prevention/Tx 02/26/24
ezetimibe 10 mg tablet 10 mg PO DAILY High Cholesterol 02/26/24
fluticasone propionate 50 mcg/actuation nasal spray,suspension 2 spray intranasal DAILY Allergies 02/26/24
repaglinide 2 mg tablet 4 mg PO QPM Diabetes 02/26/24
acetaminophen 325 mg tablet 650 mg (2 x 325 mg) PO Q4HPRN PRN pain #0 tabs 02/28/24
atorvastatin 80 mg tablet 80 mg PO QPM High cholesterol #30 tabs 02/28/24
cephalexin 500 mg capsule 500 mg PO Q6H Infection #28 caps 02/28/24
cetirizine 10 mg tablet 10 mg PO DAILY Allergies #30 tabs 02/28/24
pantoprazole 40 mg tablet,delayed release (Protonix) 40 mg PO DAILY Gastrointestinal issue #30 tabs 02/28/24
polyethylene glycol 3350 17 gram oral powder packet (HealthyLax) 17 g PO DAILY Constipation #0 ea 02/28/24
trazodone 100 mg tablet 100 mg PO HS Sleep #30 tabs 02/28/24
Home Medication Changes
new
keflex
Pending Results: No
[2024-02-28 15:00] VITALS: BP 149/95
--- NOTE | 2024-02-28 15:18 | VNURNOTE ---
Home Health Liaison met with patient and spouse Noah at 1330 to discuss VN nurse/therapy, visits, schedule and homebound status. Patient stated that she recently started outpatient PT. Liaison discussed going to outpatient vs home health and not
being able to do both at same time.
VN brochure provided with contact information and both patient and spouse are aware that if they change their mind they can call and have PCP set up [facility].
[facility] referral completed and accepted in [facility] Port earlier, but now patient is saying that she would rather resume outpatient PT at discharge.
[facility] intake office notified to hold for now.
[2024-02-28] MEDS: PREVNAR 20 0.5 ML IM (16:41)
== END 2024-02-28 17:15 | disposition home or self-care (01) | DRG 603 ==
LOC: 4 EAST ACU 18:58
PROVIDERS: Clinical Nurse Specialist Family Health; Student in an Organized Health Care Education/Training Program; ADMITTING PHYSICIAN Hospitalist; CONSULT PHYSICIAN Podiatrist Foot & Ankle Surgery; EMERGENCY PHYSICIAN Emergency Medicine; FAMILY PHYSICIAN Physician Assistant Medical; OTHER PHYSICIAN Surgery Vascular Surgery
DX: L03.115 Cellulitis of right lower limb (principal); E11.51 Type 2 diabetes mellitus with diabetic peripheral angiopathy without gangrene; M19.90 Unspecified osteoarthritis, unspecified site; M20.40 Other hammer toe(s) (acquired), unspecified foot; Z79.02 Long term (current) use of antithrombotics/antiplatelets; I10 Essential (primary) hypertension; K21.9 Gastro-esophageal reflux disease without esophagitis; K27.9 Peptic ulcer, site unspecified, unspecified as acute or chronic, without hemorrhage or perforation; F41.9 Anxiety disorder, unspecified; E61.1 Iron deficiency; G47.00 Insomnia, unspecified; E78.00 Pure hypercholesterolemia, unspecified; I87.2 Venous insufficiency (chronic) (peripheral); Z86.73 Personal history of transient ischemic attack (TIA), and cerebral infarction without residual deficits; J30.2 Other seasonal allergic rhinitis
CPT/HCPCS: 73630; 80048; 80053; 82607; 82962; 83036; 85025; 87040; 87070; 87147; 87186; 87205; 90677; 93922; 93925; 96365; 96366; 96367; 97162; 97166; 97535; 99284; G0009

== ENCOUNTER → 2024-03-02 13:45 | Outpatient (REF) | payer OTHER, SELFPAY | LOC: WOUND 13:45 | PROVIDERS: ATTENDING PHYSICIAN Surgery; FAMILY PHYSICIAN Physician Assistant Medical | DX: I87.313 Chronic venous hypertension (idiopathic) with ulcer of bilateral lower extremity (principal); L97.312 Non-pressure chronic ulcer of right ankle with fat layer exposed; L97.412 Non-pressure chronic ulcer of right heel and midfoot with fat layer exposed; S31.109A Unspecified open wound of abdominal wall, unspecified quadrant without penetration into peritoneal cavity, initial encounter; I73.9 Peripheral vascular disease, unspecified; I87.2 Venous insufficiency (chronic) (peripheral); E11.21 Type 2 diabetes mellitus with diabetic nephropathy; R60.9 Edema, unspecified; R29.898 Other symptoms and signs involving the musculoskeletal system; Z86.73 Personal history of transient ischemic attack (TIA), and cerebral infarction without residual deficits; X58.XXXA Exposure to other specified factors, initial encounter | CPT/HCPCS: 11042; 99213 ==

== ENCOUNTER → 2024-03-06 14:19 | Outpatient (REF) | payer OTHER, SELFPAY | LOC: MRI 3T 14:19 | PROVIDERS: ATTENDING PHYSICIAN Physician Assistant Medical | DX: S09.90XD Unspecified injury of head, subsequent encounter (principal) | CPT/HCPCS: 70553; A9575 ==

== ENCOUNTER → 2024-03-10 13:41 | Outpatient (REF) | payer OTHER, SELFPAY | LOC: WOUND 13:41 | PROVIDERS: ATTENDING PHYSICIAN Surgery; FAMILY PHYSICIAN Physician Assistant Medical | DX: I87.313 Chronic venous hypertension (idiopathic) with ulcer of bilateral lower extremity (principal); L97.412 Non-pressure chronic ulcer of right heel and midfoot with fat layer exposed; L97.312 Non-pressure chronic ulcer of right ankle with fat layer exposed; S31.109A Unspecified open wound of abdominal wall, unspecified quadrant without penetration into peritoneal cavity, initial encounter; X58.XXXA Exposure to other specified factors, initial encounter; I73.9 Peripheral vascular disease, unspecified; I87.2 Venous insufficiency (chronic) (peripheral); E11.21 Type 2 diabetes mellitus with diabetic nephropathy; R60.9 Edema, unspecified; R29.898 Other symptoms and signs involving the musculoskeletal system; Z86.73 Personal history of transient ischemic attack (TIA), and cerebral infarction without residual deficits | CPT/HCPCS: 11042 ==

== ENCOUNTER → 2024-03-23 12:41 | Outpatient (REF) | payer OTHER, SELFPAY | LOC: RAD 12:41 | PROVIDERS: ATTENDING PHYSICIAN Surgery; FAMILY PHYSICIAN Physician Assistant Medical | DX: I87.313 Chronic venous hypertension (idiopathic) with ulcer of bilateral lower extremity (principal); I73.9 Peripheral vascular disease, unspecified | CPT/HCPCS: 93970 ==

== ENCOUNTER → 2024-03-24 13:51 | Outpatient (REF) | payer OTHER, SELFPAY | LOC: WOUND 13:51 | PROVIDERS: ATTENDING PHYSICIAN Surgery; FAMILY PHYSICIAN Physician Assistant Medical | DX: I87.313 Chronic venous hypertension (idiopathic) with ulcer of bilateral lower extremity (principal); L97.312 Non-pressure chronic ulcer of right ankle with fat layer exposed; L97.412 Non-pressure chronic ulcer of right heel and midfoot with fat layer exposed; S31.109A Unspecified open wound of abdominal wall, unspecified quadrant without penetration into peritoneal cavity, initial encounter; I73.9 Peripheral vascular disease, unspecified; I87.2 Venous insufficiency (chronic) (peripheral); E11.21 Type 2 diabetes mellitus with diabetic nephropathy; R60.9 Edema, unspecified; R29.898 Other symptoms and signs involving the musculoskeletal system; Z86.73 Personal history of transient ischemic attack (TIA), and cerebral infarction without residual deficits; X58.XXXA Exposure to other specified factors, initial encounter | CPT/HCPCS: 11042 ==

== ENCOUNTER → 2024-03-31 14:18 | Outpatient (REF) | payer OTHER, SELFPAY | LOC: WOUND 14:18 | PROVIDERS: ATTENDING PHYSICIAN Surgery; FAMILY PHYSICIAN Physician Assistant Medical | DX: I87.313 Chronic venous hypertension (idiopathic) with ulcer of bilateral lower extremity (principal); L97.312 Non-pressure chronic ulcer of right ankle with fat layer exposed; L97.412 Non-pressure chronic ulcer of right heel and midfoot with fat layer exposed; I73.9 Peripheral vascular disease, unspecified; S31.109A Unspecified open wound of abdominal wall, unspecified quadrant without penetration into peritoneal cavity, initial encounter; X58.XXXA Exposure to other specified factors, initial encounter; I87.2 Venous insufficiency (chronic) (peripheral); E11.21 Type 2 diabetes mellitus with diabetic nephropathy; R60.9 Edema, unspecified; Z86.73 Personal history of transient ischemic attack (TIA), and cerebral infarction without residual deficits | CPT/HCPCS: 99213 ==

== ENCOUNTER → 2024-04-10 13:52 | Outpatient (REF) | payer OTHER, SELFPAY | LOC: WOUND 13:52 | PROVIDERS: ATTENDING PHYSICIAN Surgery; FAMILY PHYSICIAN Physician Assistant Medical | DX: I87.313 Chronic venous hypertension (idiopathic) with ulcer of bilateral lower extremity (principal); L97.821 Non-pressure chronic ulcer of other part of left lower leg limited to breakdown of skin; L97.412 Non-pressure chronic ulcer of right heel and midfoot with fat layer exposed; S31.109A Unspecified open wound of abdominal wall, unspecified quadrant without penetration into peritoneal cavity, initial encounter; X58.XXXA Exposure to other specified factors, initial encounter; I73.9 Peripheral vascular disease, unspecified; I87.2 Venous insufficiency (chronic) (peripheral); E11.21 Type 2 diabetes mellitus with diabetic nephropathy; R60.9 Edema, unspecified; R29.898 Other symptoms and signs involving the musculoskeletal system; Z86.73 Personal history of transient ischemic attack (TIA), and cerebral infarction without residual deficits | CPT/HCPCS: 99213 ==

== ENCOUNTER → 2024-04-17 10:48 | Outpatient (REF) | payer OTHER, SELFPAY | LOC: WOUND 10:48 | PROVIDERS: ATTENDING PHYSICIAN Surgery; FAMILY PHYSICIAN Physician Assistant Medical | DX: I87.313 Chronic venous hypertension (idiopathic) with ulcer of bilateral lower extremity (principal); L97.821 Non-pressure chronic ulcer of other part of left lower leg limited to breakdown of skin; L97.412 Non-pressure chronic ulcer of right heel and midfoot with fat layer exposed; S31.109A Unspecified open wound of abdominal wall, unspecified quadrant without penetration into peritoneal cavity, initial encounter; I73.9 Peripheral vascular disease, unspecified; I87.2 Venous insufficiency (chronic) (peripheral); E11.21 Type 2 diabetes mellitus with diabetic nephropathy; R60.9 Edema, unspecified; R29.898 Other symptoms and signs involving the musculoskeletal system; X58.XXXA Exposure to other specified factors, initial encounter | CPT/HCPCS: 29581; 99213 ==

== ENCOUNTER → 2024-04-23 14:11 | Outpatient (REF) | payer OTHER, SELFPAY | LOC: WOUND 14:11 | PROVIDERS: ATTENDING PHYSICIAN Surgery; FAMILY PHYSICIAN Physician Assistant Medical | DX: I87.313 Chronic venous hypertension (idiopathic) with ulcer of bilateral lower extremity (principal); L97.821 Non-pressure chronic ulcer of other part of left lower leg limited to breakdown of skin; L97.412 Non-pressure chronic ulcer of right heel and midfoot with fat layer exposed; S31.109A Unspecified open wound of abdominal wall, unspecified quadrant without penetration into peritoneal cavity, initial encounter; I73.9 Peripheral vascular disease, unspecified; I87.2 Venous insufficiency (chronic) (peripheral); E11.21 Type 2 diabetes mellitus with diabetic nephropathy; R60.9 Edema, unspecified; R29.898 Other symptoms and signs involving the musculoskeletal system; Z86.73 Personal history of transient ischemic attack (TIA), and cerebral infarction without residual deficits; X58.XXXA Exposure to other specified factors, initial encounter | CPT/HCPCS: 29581; 99212 ==

== ENCOUNTER → 2024-05-14 13:04 | Outpatient (REF) | payer OTHER, SELFPAY | LOC: HWEVLT 13:04 | PROVIDERS: ATTENDING PHYSICIAN Radiology Diagnostic Radiology | DX: I83.892 Varicose veins of left lower extremity with other complications (principal) | CPT/HCPCS: 36478; C1769 ==

== ENCOUNTER → 2024-05-18 14:41 | Outpatient (REF) | payer OTHER, SELFPAY ==
--- NOTE | 2024-05-18 15:44 | W.PN.UPDATE ---
Update Note
Progress Note Update
I had the pleaseure of seeing Oneyda today in follow up after her left greater saphenous vein EVLT on 05/14/24. She developed significant bruising to her left leg. She had a blister that developed over the inferior, posterior thigh. The blister has
since ruptured and she now has a tender indurated area. She comes for evaluation.
PMHx/PSxHx: Venous insufficiency, hypertension, CVA, peripheral vascular disease, diabetes mellitus, rectal bleeding, nephrectomy, hernia repair, shoulder replacement.
Social Hx: Patient is and lives with her . She denies tobacco use.
Family Hx: Patient reports family history of venous disease and leg ulcerations
The patient's medications were reconciled with the medical records.
Current Medications: Plavix, Fluticasone, iron, Zyrtec, repaglinide, atorvastatin, lisinopril, metoprolol, trazodone, Trulicity, citalopram, bupropion, pantoprazole,ezitimibe,.
Allergies: Aspirin.
Physical examination: This is a well-nourished, well-developed 73-year-old female who is awake, alert and oriented in no acute distress. Color is good. Skin is warm and dry. She has circumferential echymosis over most of her left leg. She has an
indurated area over the posterior inferior thigh. She has an area of desquamation where the blister has ruptured measuring approximately 2.5 x 4 cm. Its is draining serous fluid. No active bleeding.
US LLE demonstrates no evidence of DVT. Hematoma over the area of concern. I personally reviewed and interpreted these images
A/P
73 yo female with h/o venous insufficiency who underwent LLE EVLT on 05/14/24
She developoed a post procedure hematoma and blister
There are no signs of cellulitis
No DVT on US.
Recommend local treatment with nonstick dressing +/- antibiotic ointment, warm compresses and Tylenol #3 for pain
She will follow up with me in the [facility] on 05/28/24
I spent approximately 35 minutes in counseling and coordination of care with the patient, reviewing the history, physical examination, ultrasound exam as well as discussing the results with the patient and her . I provided local wound care
and explained the expected course of wound healing.
== END ==
LOC: RAD 14:41
PROVIDERS: ATTENDING PHYSICIAN Radiology Diagnostic Radiology; FAMILY PHYSICIAN Physician Assistant Medical
DX: I83.892 Varicose veins of left lower extremity with other complications (principal); I82.402 Acute embolism and thrombosis of unspecified deep veins of left lower extremity
CPT/HCPCS: 93971

== ENCOUNTER → 2024-11-27 15:57 | Outpatient (REF) | payer OTHER, SELFPAY | LOC: HWRAD 15:57 | PROVIDERS: ATTENDING PHYSICIAN Physician Assistant Medical | DX: M25.561 Pain in right knee (principal) | CPT/HCPCS: 73564 ==

== ENCOUNTER 2025-02-27 10:46 | Emergency (ER) | payer OTHER, SELFPAY ==
[2025-02-27 10:50] VITALS: BP 156/75
[2025-02-27 10:53] LABS: Glucose - Point of Care 467 mg/dl (70-99)
[2025-02-27 11:02] VITALS: BP 146/76; BMI 31.9
[2025-02-27 11:25] LABS: % Basophils 0.3 % (0-2); % Eosinophils 4.7 % (0-6); % Immature Granulocytes 0.4 % (0-0.5); % Lymphocytes 16.6 % (20.5-51.1); % Monocytes 7.4 % (1.7-9.3); % Neutrophils 70.6 % (42.2-75.2); Absolute Eosinophils 0.3 10^3/uL (0-0.7); Absolute Lymphocytes 1.2 10^3/uL (1.2-3.4); Absolute Monocytes 0.5 10^3/uL (0.1-0.6); Absolute Neutrophils 5.2 10^3/uL (1.4-6.5); Hematocrit 35.8 % (37.0-47.0); Hemoglobin 11.8 g/dL (12.0-16.0); Mean Corpuscular Hgb 29.9 pg (27.0-31.0); Mean Corpuscular Volume 90.9 fL (81.0-99.0); Mean Platelet Volume 10.4 fL (7.4-10.4); Nucleated Red Blood Cells % 0 %; Platelet Count 255 10^3/uL (130-400); Red Blood Cell Count 3.94 10^6/uL (4.20-5.40); Red Cell Dist. Width 13.2 % (11.5-14.5); White Blood Cell Count 7.3 10^3/uL (4.8-10.8)
[2025-02-27 11:36] LABS: ALT (SGPT) 24 U/L (0-35); AST (SGOT) 22 U/L (14-36); Albumin 3.3 g/dl (3.5-5.0); Alkaline Phosphatase 176 U/L (38-126); Blood Urea Nitrogen 14 mg/dl (7-17); Calcium 8.7 mg/dl (8.4-10.2); Carbon Dioxide 23 mmol/L (22-30); Chloride 106 mmol/L (98-107); Estimated Creatinine Clearance 53 ml/min; Glucose 434 mg/dl (70-99); Potassium 4.1 mmol/L (3.5-5.1); Sodium 138 mmol/L (135-145); Total Bilirubin 0.6 mg/dl (0.2-1.3); Total Protein 5.6 g/dl (6.3-8.2); eGFR > 60.00
[2025-02-27 11:41] LABS: NT-proBNP 252 pg/ml
[2025-02-27] MEDS: NSS 1000 IV (11:41)
--- NOTE | 2025-02-27 11:47 | ED.GENMED ---
History of Present Illness
General
Chief Complaint: Blood Sugar Problem
Source: patient
Time Seen by Provider: 02/27/25 11:20
History of Present Illness
History of Present Illness:
74-year-old female with past medical history of pbf-[id number]-taxmfmhmi diabetes, previous renal cell carcinoma status post right nephrectomy, peripheral arterial disease, hypertension, hyperlipidemia, previous CVA presenting to the emergency
department for evaluation after she has been experiencing elevated blood glucose levels over the last week or so, today blood sugar was higher than it normally had been around 400. Patient was recently on a steroid taper for sinus infection, was
taking the medication for 10 days but has been off the medicine for a little less than 1 week. Patient states she feels a little bit generally fatigued but states more anxious over her blood sugars currently. Denies polyuria, polydipsia,
polyphasia, abdominal pain, nausea, vomiting, headaches, visual disturbances or any other concerns. Patient notes no changes to her medications recently. She does have a follow-up visit scheduled with her phlebotomy supervisor on the of this month.
Reports her last A1c seem to be downtrending from where she had been previously.
Past History
Past History
ED Past Medical History: Cancer, CVA, GERD, HTN, Hypercholesterolemia, NIDDM, Psychiatric and Other (Peripheral vascular disease, peptic ulcer disease, Renal CA with right nephrectomy 2006)
ED Past Surgical History: , Gynecological and Other
Social History
Tobacco: Non-smoker
Alcohol: None
Drug: None
Personal:
Living: with family
Review of Systems
Review of Systems
All Other Systems: ROS reviewed and negative except as documented in HPI and ROS
Phy Exam
Physical Exam
Physical Exam:
GENERAL: Alert , in no apparent distress
EYE: conjunctiva clear
NECK: Supple
ENT: o/p clr, mmm.
CARDIAC: Regular rate and rhythm
LUNGS: Clear breath sounds bilaterally, no acute respiratory distress, no wheezes/rales/rhonchi
NEUROLOGICAL: Alert and oriented
SKIN: Warm and dry, skin intact.
MUSCULOSKELETAL: well perfused.
PSYCH: Normal and appropriate interaction.
Scores
Heart Failure Risk
Heart Failure Risk Score: Not Applicable
Heart Score for Chest Pain Patients
STEMI patient?: Not applicable
Withdrawal Assessment of Alcohol
Withdrawal Assessment Completed?: Not applicable
Course
Orders/Labs/Results
Orders:
Orders
02/27/25 11:08
B-Hydroxybutyrate Urgent
BNP [NT-proBNP] Urgent
Complete Blood Count/With Diff Urgent
Comprehensive Metabolic Panel Urgent
02/27/25 11:35
Add On- LAB Urgent
Tests Added?: b-hydroxybutarate
0.9% Sodium Chloride 1000 ml [Nss] 1,000 ml IV BOLUS
02/27/25 11:40
Venous Blood Gas Urgent
%Oxygen/Room Air: RA
02/27/25 12:34
Bedside Glucose- Treatment ONCE
02/27/25 13:49
Urinalysis Urgent
Date Specimen was Collected: 02/27/25
Time Specimen was Collected: 12:32
Urine Microscopic Urgent
Date Specimen was Collected: 02/27/25
Time Specimen was Collected: 12:32
Abnormal Lab Results
02/27/25 02/27/25 02/27/25
10:52 11:08 11:40
RBC 3.94 L 10^6/uL
(4.20-5.40)
Hgb 11.8 L g/dL
(12.0-16.0)
Hct 35.8 L %
(37.0-47.0)
Lymphocytes % 16.6 L %
(20.5-51.1)
VBG pH 7.30 L
(7.32-7.43)
VBG pCO2 53 H mmHg
(35-48)
Glucose 434 H mg/dl
(70-99)
Alkaline Phosphatase 176 H U/L
(38-126)
Total Protein 5.6 L g/dl
(6.3-8.2)
Albumin 3.3 L g/dl
(3.5-5.0)
Urine Glucose
Urine Albumin
POC Glucose 467 H* mg/dl
(70-99)
02/27/25 02/27/25
13:47 13:49
RBC
Hgb
Hct
Lymphocytes %
VBG pH
VBG pCO2
Glucose
Alkaline Phosphatase
Total Protein
Albumin
Urine Glucose 4+ A
(Negative)
Urine Albumin 2+ A
(Neg - Trace)
POC Glucose 274 H mg/dl
(70-99)
02/27/25 11:08
02/27/25 11:08
Vital Signs
Initial and Last Documented VS:
Initial Vital Signs
Temp Pulse Resp BP Pulse Ox
98.0 F 82 16 156/75 98
02/27/25 10:50 02/27/25 10:50 02/27/25 10:50 02/27/25 10:50 02/27/25 10:50
Last Documented Vital Signs
Temp Pulse Resp BP Pulse Ox
98.0 F 82 16 146/76 98
02/27/25 10:50 02/27/25 10:50 02/27/25 10:50 02/27/25 11:02 02/27/25 10:50
MDM/Problems Addressed
Differential Diagnosis Includes:
Hyperglycemia secondary to recent prolonged steroid taper, DKA, HHNK, no signs of current infection
MDM/Problems Addressed:
74-year-old female presenting to the ER for evaluation of hyperglycemia that she has noticed over the last week, was recently on prolonged steroid taper for a sinus infection. Reports sinus infection symptoms have fully resolved. At present time
patient denies any polyuria, polydipsia, polyphasia. She is in no acute distress and otherwise stable. I do suspect her hyperglycemia is likely related to recent steroid use. Her qckmp-ab-iuix glucose is greater than 450 here. Will check labs,
fluids ordered. Disposition pending.
Chronic conditions affecting care: DM
Acute Exacerbation and/or Progression of Chronic Illness: DM
*Pulse Oximetry
Patient hypoxic: no
*Critical Care Note
Total Time (30-74mins, 75-104mins- exclusive of procedures): Not Applicable
Data Reviewed
Review of Other/Old Records Reveals: Labs and Records
Patient Management
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
Escalation/DeEscalation of care consider admission/obs:
Patient's repeat blood sugar following fluids is down to 274. She reports symptomatic improvement. I did notify patient's phlebotomy supervisor about patient's workup here in the emergency department as patient has a follow-up visit scheduled for early
this coming week. Will not make any med adjustments at this time but did advise patient continue to closely monitor her blood sugars as well as dietary modification and avoidance or limiting simple carbohydrate take. Patient aware of return
precautions. Otherwise stable for discharge home.
ED Attending Note
-
Portions of this chart may have been created with voice recognition software.� Occasional wrong word or��sound alike� substitutions may have occurred due to the inherent limitations of voice recognition software.
Discharge Plan
Departure
Patient Disposition: Home (Routine Discharge)
Date of Disposition: 02/27/25
Time of Disposition: 14:01
Patient with high blood pressure during this ER visit?: Yes
Discharge Problem:
Steroid-induced hyperglycemia
Instructions: High blood sugar in adults - ED discharge instructions
Prescriptions:
No Action
lisinopril [Zestril] 40 MG tablet
40 mg PO QPM
metoprolol tartrate 25 MG tablet
25 mg PO DAILY
citalopram 40 mg Tablet
40 mg PO DAILY
bupropion HCl 100 mg Tablet
100 mg PO DAILY
repaglinide 2 mg tablet
2 mg PO DAILY
metoprolol tartrate 25 mg Tablet
50 mg PO QPM
Trulicity 1.5 mg/0.5 mL pen injector
1.5 mg SC MO@1900
acetaminophen 325 MG tablet
650 mg PO Q6H PRN (Reason: mild pain)
repaglinide 2 mg Tablet
4 mg PO QPM
clopidogrel 75 mg Tablet
75 mg PO DAILY
fluticasone propionate 50 mcg/actuation [place],Suspension
2 spray INTRANASAL DAILY
ezetimibe 10 mg Tablet
10 mg PO DAILY
Patient Comments:
02/26/2024, pt. unsure if this is morning or evening med.
Slow Release Iron 45 mg tablet
45 mg PO QPM
polyethylene glycol 3350 [HealthyLax] 17 gram Powder In Packet
17 g PO DAILY Qty: 0 0RF
cephalexin 500 mg Capsule
500 mg PO Q6H Qty: 28 0RF
acetaminophen 325 mg Tablet
650 mg PO Q4HPRN PRN (Reason: pain) Qty: 0 0RF
atorvastatin 80 MG tablet
80 mg PO QPM Qty: 30 0RF
cetirizine 10 MG tablet
10 mg PO DAILY Qty: 30 0RF
trazodone 100 MG tablet
100 mg PO HS Qty: 30 0RF
pantoprazole [Protonix] 40 mg tablet,delayed release (DR/EC)
40 mg PO DAILY Qty: 30 0RF
Patient Comments:
02/26/2024, pt. unsure if this is morning or evening med.
Referrals:
Deborah Boucher PA-C [Family Provider] -
Interventions
Interventions:
*Risk Screen - Suicide Last Done: 02/27/25 10:50
*General Assessment Last Done: 02/27/25 11:02
*Neglect/Abuse Screening Last Done: 02/27/25 10:50
*ED- Fall Risk Assessment Last Done: 02/27/25 11:02
*ED COVID-19 Vaccine History Last Done: 02/27/25 11:02
ED- Neurological Assessment Last Done: 02/27/25 11:03
Discharge Date and Time
Print Language: KINYARWANDA
[2025-02-27 11:52] LABS: Venous Blood Gas HCO3 26.1 mmol/L (22-27); Venous Blood Gas O2 Sat % 68.3 %; Venous Blood Gas pCO2 53 mmHg (35-48); Venous Blood Gas pO2 40 mmHg (30-50)
[2025-02-27 12:00] VITALS: BP 143/67
[2025-02-27 12:00] LABS: B-Hydroxybutyrate 0.07 mmol/L (0.02-0.27)
[2025-02-27 13:11] VITALS: BP 151/73
[2025-02-27 13:49] LABS: Glucose - Point of Care 274 mg/dl (70-99)
[2025-02-27 14:00] VITALS: BP 132/73
[2025-02-27 14:00] LABS: Urine Albumin 2+ (Neg - Trace); Urine Bilirubin Negative (Negative); Urine Character Clear (Clear); Urine Color Yellow; Urine Glucose 4+ (Negative); Urine Ketone Negative (Negative); Urine Leukocyte Negative (Negative); Urine Nitrite Negative (Negative); Urine Occult Blood Negative (Negative); Urine Specific Gravity 1.015 (<1.030); Urine Urobilinogen Negative (Neg - 1+)
[2025-02-27 14:24] LABS: Urine Red Blood Cell 0-2 /HPF (0-2); Urine Squamous Cell 16-20 /LPF (Few)
== END 2025-02-27 15:00 | disposition home or self-care (01) ==
LOC: EMR 10:46
PROVIDERS: Physician Assistant Medical; EMERGENCY PHYSICIAN Emergency Medicine; FAMILY PHYSICIAN Physician Assistant Medical
DX: E11.65 Type 2 diabetes mellitus with hyperglycemia (principal); T38.0X5A Adverse effect of glucocorticoids and synthetic analogues, initial encounter; Y92.9 Unspecified place or not applicable; E11.51 Type 2 diabetes mellitus with diabetic peripheral angiopathy without gangrene; E78.00 Pure hypercholesterolemia, unspecified; I10 Essential (primary) hypertension; Z79.52 Long term (current) use of systemic steroids; Z85.528 Personal history of other malignant neoplasm of kidney; Z86.73 Personal history of transient ischemic attack (TIA), and cerebral infarction without residual deficits; Z87.11 Personal history of peptic ulcer disease; Z90.5 Acquired absence of kidney
CPT/HCPCS: 99283; 96360; 80053; 81003; 81015; 82010; 82805; 82962; 83880; 85025

== ENCOUNTER → 2025-04-02 13:51 | Outpatient (REF) | payer OTHER, SELFPAY | LOC: HWRAD 13:51 | PROVIDERS: ATTENDING PHYSICIAN Physician Assistant; FAMILY PHYSICIAN Physician Assistant Medical | DX: M79.661 Pain in right lower leg (principal) | CPT/HCPCS: 93971 ==

== ENCOUNTER 2025-08-28 14:04 | Emergency (ER) | payer OTHER, SELFPAY ==
[2025-08-28 14:07] VITALS: BP 152/100
--- NOTE | 2025-08-28 16:56 | ED.MUSCINJ ---
HPI-Injury
General
Chief Complaint: Musculo-Skeletal Complaint
Source: patient
Exam Limitations: none
Time Seen by Provider: 08/28/25 16:25
Nursing documentation reviewed up to this point in time: agreed with
History of Present Illness-Injury
Is this injury a work related problem?: No
Is pt an associate of [facility]?: No
Initial Injury comments:
Patient to ED with report of right foot pain, right posterior knee pain. States she fell while walking to her bathroom. Denies hitting her head. Incident occcurred this AM. To ED accompanied by spouse.
Past History
Past History
ED Past Medical History: Cancer, CVA, GERD, HTN, Hypercholesterolemia, NIDDM, Psychiatric and Other (Peripheral vascular disease, peptic ulcer disease, Renal CA with right nephrectomy 2006)
ED Past Surgical History: , Gynecological and Other
Social History
Tobacco: Non-smoker
Alcohol: None
Drug: None
Personal:
Living: with family
Review of Systems
Review of Systems
Allergies reviewed?: Yes
All Other Systems: ROS reviewed and negative except as documented in HPI and ROS
Constitutional: Reports no symptoms
EENT: Reports no symptoms
Respiratory: Reports no symptoms
Cardiac: Reports no symptoms
ABD/GI: Reports no symptoms
Musculoskeletal: Reports joint pain (pain to right foot, right posterior knee)
Skin: Reports no symptoms
Neurological: Reports no symptoms
Psychiatric: Reports no symptoms
Musculoskeletal Injury Exam
Musculoskeletal Injury Exam
Right Foot:
Pain with Movement?: Moderate
Tender to palpation?: Moderate
Soft tissue swelling?: Moderate
External deformity and angulation?: None
Joint effusion?: None
Contusion?: None
Hematoma-local bleeding into tissue?: Moderate
Strain- Sprain- Tear (Connective tissue injury)?: Moderate
Crepitus with movement?: No
Joint instability?: No
Malalignment/deformity?: No
Range of motion: Limited
Distal skin color and temperature: normal-warm & good color
Capillary Refill: normal
Normal distal neurovascular exam?: Yes
Peripheral Pulses: posterior tibial (right): 3+ and dorsalis pedis (right): 3+
Right Posterior Knee:
Pain with Movement?: Moderate
Tender to palpation?: Mild
Soft tissue swelling?: None
External deformity and angulation?: None
Joint effusion?: None
Contusion?: Moderate
Hematoma-local bleeding into tissue?: None
Strain- Sprain- Tear (Connective tissue injury)?: None
Crepitus with movement?: No
Joint instability?: No
Malalignment/deformity?: No
Range of motion: Full
Distal skin color and temperature: normal-warm & good color
Capillary Refill: normal
Normal distal neurovascular exam?: Yes
Phy Exam
General Physical Exam
General Presentation: moderate distress
General age: appears stated age
General Skin: warm and dry
General Habitus: normal
General Mental: alert
Neurological Exam
Neurological Exam: alert, oriented x3 and CN II-XII intact
Musculoskeletal Exam
Musculoskeletal Exam: neuro vasc intact
Skin Exam
Skin Exam: normal color, warm/dry and no rash
Psychiatric Exam
Psychiatric Exam: normal mood/affect
Injury Course
Orders/Labs/Results
Orders:
Orders
08/28/25 14:10
Foot, Right 3 View [CR Foot - Right Min 3 Views] Urgent
Comment:
Reason For Exam: fall
08/28/25 14:11
Ankle, Right 3 view CR [CR Ankle - Right Min 3 Views *] Urgent
Comment:
Reason For Exam: injury
Knee, Right 4 or More Views [CR Knee- Right 4 Or More View*] Urgent
Comment:
Reason For Exam: injury
08/28/25 16:51
Knee Immobilizer Right-Treatme ONCE
Ortho Boot Right- Treatment ONCE
Short or tall?: Short
Oxycodone [Roxicodone] 5 mg PO NOW STA
*Radiology
Radiology exam reviewed: radiology read reviewed
*Pulse Oximetry
SaO2: 98
Oxygen Mode of Delivery: Room air
Patient hypoxic: no
*Critical Care Note
Total Time (30-74mins, 75-104mins- exclusive of procedures): Not Applicable
Update Note
Update Note:
Patient to ED after trip and fall at home. NO head injury. Pain to right foot and knee. Fx to right metarsal head 2,3,4,5 noted. SHe had a tibial plateau fx approx 8 mos ago. Todays xray confirms partial healing but can not rule out acute
component to fracture site. SHe was placedin knee immobilizer and ortho boot. Will be dischargedhome and will use walker to ambulate. She will follow up with orthopedics this week. Patient is agreeable to plan.
ED Attending Note
-
Portions of this chart may have been created with voice recognition software.� Occasional wrong word or��sound alike� substitutions may have occurred due to the inherent limitations of voice recognition software.
Discharge Plan
Departure
Patient Disposition: Home (Routine Discharge)
Date of Disposition: 08/28/25
Time of Disposition: 16:52
Patient with high blood pressure during this ER visit?: No
Condition: Good
Discharge Problem:
Metatarsal fracture
Instructions: Contusion (DC), Knee Pain (DC), Using Cold for Pain, Foot Fracture ED
Prescriptions:
New
hydrocodone-acetaminophen 5-325 mg tablet
1 tab PO Q4H PRN (Reason: Pain) Qty: 12 0RF
No Action
lisinopril [Zestril] 40 MG tablet
40 mg PO QPM
metoprolol tartrate 25 MG tablet
25 mg PO DAILY
citalopram 40 mg Tablet
40 mg PO DAILY
bupropion HCl 100 mg Tablet
100 mg PO DAILY
repaglinide 2 mg tablet
2 mg PO DAILY
metoprolol tartrate 25 mg Tablet
50 mg PO QPM
Trulicity 1.5 mg/0.5 mL pen injector
1.5 mg SC MO@1900
acetaminophen 325 MG tablet
650 mg PO Q6H PRN (Reason: mild pain)
repaglinide 2 mg Tablet
4 mg PO QPM
clopidogrel 75 mg Tablet
75 mg PO DAILY
fluticasone propionate 50 mcg/actuation [place],Suspension
2 spray INTRANASAL DAILY
ezetimibe 10 mg Tablet
10 mg PO DAILY
Patient Comments:
02/26/2024, pt. unsure if this is morning or evening med.
Slow Release Iron 45 mg tablet
45 mg PO QPM
polyethylene glycol 3350 [HealthyLax] 17 gram Powder In Packet
17 g PO DAILY Qty: 0 0RF
cephalexin 500 mg Capsule
500 mg PO Q6H Qty: 28 0RF
acetaminophen 325 mg Tablet
650 mg PO Q4HPRN PRN (Reason: pain) Qty: 0 0RF
atorvastatin 80 MG tablet
80 mg PO QPM Qty: 30 0RF
cetirizine 10 MG tablet
10 mg PO DAILY Qty: 30 0RF
trazodone 100 MG tablet
100 mg PO HS Qty: 30 0RF
pantoprazole [Protonix] 40 mg tablet,delayed release (DR/EC)
40 mg PO DAILY Qty: 30 0RF
Patient Comments:
02/26/2024, pt. unsure if this is morning or evening med.
Referrals:
Viviana Kim I., DO [[facility], Orthopedics] - Call in 1-3 days for appt
Interventions
Interventions:
*Risk Screen - Suicide Last Done: 08/28/25 14:07
*Neglect/Abuse Screening Last Done: 08/28/25 14:07
Discharge Date and Time
Print Language: TRINIDADIAN
[2025-08-28] MEDS: ROXICODONE 5 MG PO (17:05)
== END 2025-08-28 17:45 | disposition home or self-care (01) ==
LOC: EMR 14:04
PROVIDERS: EMERGENCY PHYSICIAN Emergency Medicine; FAMILY PHYSICIAN Physician Assistant Medical
DX: S92.321A Displaced fracture of second metatarsal bone, right foot, initial encounter for closed fracture (principal); S92.331A Displaced fracture of third metatarsal bone, right foot, initial encounter for closed fracture; S92.341A Displaced fracture of fourth metatarsal bone, right foot, initial encounter for closed fracture; S92.351A Displaced fracture of fifth metatarsal bone, right foot, initial encounter for closed fracture; W18.30XA Fall on same level, unspecified, initial encounter; Y93.01 Activity, walking, marching and hiking; M25.561 Pain in right knee; K21.9 Gastro-esophageal reflux disease without esophagitis; I10 Essential (primary) hypertension; E78.00 Pure hypercholesterolemia, unspecified; E11.51 Type 2 diabetes mellitus with diabetic peripheral angiopathy without gangrene; M17.11 Unilateral primary osteoarthritis, right knee; Z85.528 Personal history of other malignant neoplasm of kidney; Z86.73 Personal history of transient ischemic attack (TIA), and cerebral infarction without residual deficits; Z87.11 Personal history of peptic ulcer disease
CPT/HCPCS: 99283; 29505; 73564; 73610; 73630